=== PATIENT | female | born 1960 | race Caucasian/White ===

== ENCOUNTER 2018-12-13 15:58 | Emergency (ER) | payer MEDICAID ==
[~2018-12-13] VITALS: Ht 160 cm; Wt 82.0 kg
[2018-12-13] MEDS ORDERED: KETOROLAC 60MG/2ML VIAL IM ONE (18:30)
[2018-12-13] MEDS ORDERED: HYDROCODONE/ACETAMINOPHEN 5/325MG TABLET PO ONE (18:45)
[2018-12-13 19:14] VITALS: BP 159/96
== END 2018-12-13 19:19 | disposition home or self-care (01) ==
LOC: ER 15:58
DX: M54.2 Cervicalgia (principal); F17.210 Nicotine dependence, cigarettes, uncomplicated; Z98.1 Arthrodesis status
CPT/HCPCS: 96372; 99283; J1885

== ENCOUNTER 2018-12-14 23:14 | Emergency (ER) | payer MEDICAID ==
[~2018-12-14] VITALS: Ht 157.5 cm; Wt 91.0 kg
[2018-12-14 23:47] VITALS: BP 163/88
== END 2018-12-15 03:54 | disposition left against medical advice (07) ==
LOC: ER 23:14
DX: Z53.21 Procedure and treatment not carried out due to patient leaving prior to being seen by health care provider (principal); I10 Essential (primary) hypertension; Z98.890 Other specified postprocedural states

== ENCOUNTER 2018-12-15 13:44 | Emergency (ER) | payer MEDICAID ==
[~2018-12-15] VITALS: Ht 157.5 cm; Wt 100.0 kg
[2018-12-15] MEDS ORDERED: SODIUM CHLORIDE 0.9% 1,000 ML IV ONE (15:09)
[2018-12-15] MEDS ORDERED: ONDANSETRON HCL 4MG/2ML INJ IV STA (15:09)
[2018-12-15] MEDS ORDERED: LORAZEPAM 0.5MG TABLET PO ONE (15:15)
[2018-12-15] MEDS ORDERED: AMLODIPINE 5MG TABLET PO ONE (15:15)
[2018-12-15 15:28] LABS: BASOPHILS % 0.8 % (0.0-2.0); EOSINOPHILS % 0.7 % (0.0-5.0); HEMATOCRIT. 44.7 % (36.0-48.0); MEAN CORPUSCULAR HEMOGLOBIN 29.3 pg (28.0-32.0); MEAN CORPUSCULAR VOLUME 87.1 fL (81.0-99.0); MEAN PLATELET VOLUME 8.3 fl (7.4-10.4); NEUTROPHILS % 78.5 % (40.0-76.0); PLATELET 224 x1000/uL (130-400); RED BLOOD CELL COUNT 5.13 mill/uL (4.2-5.4)
[2018-12-15 15:34] LABS: CHLORIDE 101 mEq/L (98-107)
[2018-12-15 17:59] LABS: CLARITY URINE CLEAR (CLEAR); COLOR URINE YELLOW (YELLOW); KETONES URINE NEGATIVE (NEGATIVE); LEUKOCYTE ESTERASE URINE NEGATIVE (NEGATIVE); NITRITE URINE NEGATIVE (NEGATIVE); OCCULT BLOOD URINE NEGATIVE (NEGATIVE); PROTEIN URINE NEGATIVE (NEGATIVE); SPECIFIC GRAVITY URINE 1.009 (1.005-1.030); UROBILINOGEN URINE 0.2 E.U./dL (0.2-1.0)
[2018-12-15] MEDS ORDERED: KETOROLAC 30MG/ML VIAL IV ONE (18:15)
[2018-12-15 19:11] VITALS: BP 149/74
== END 2018-12-15 19:14 | disposition home or self-care (01) ==
LOC: ER 13:44
DX: R11.10 Vomiting, unspecified (principal); R19.7 Diarrhea, unspecified; I10 Essential (primary) hypertension
CPT/HCPCS: 36415; 71045; 80053; 81003; 85025; 93005; 96361; 96374; 96375; 99284; J1885; J2405; J7030

== ENCOUNTER 2019-01-08 16:27 | Emergency (ER) | payer MEDICAID ==
[~2019-01-08] VITALS: Ht 157.5 cm; Wt 90.0 kg
[2019-01-08 18:10] LABS: BASOPHILS % 0.9 % (0.0-2.0); EOSINOPHILS % 1.7 % (0.0-5.0); HEMATOCRIT. 46.1 % (36.0-48.0); LYMPHOCYTES % 27.1 % (20.0-50.0); MEAN CORPUSCULAR HEMOGLOBIN 28.8 pg (28.0-32.0); MEAN CORPUSCULAR VOLUME 88.8 fL (81.0-99.0); MEAN PLATELET VOLUME 8.4 fl (7.4-10.4); MONOCYTES % 6.7 % (2.0-8.0); NEUTROPHILS % 63.6 % (40.0-76.0); PLATELET 273 x1000/uL (130-400); RED BLOOD CELL COUNT 5.19 mill/uL (4.2-5.4); RED CELL DISTRIBUTION WIDTH 14.5 % (11.6-14.6)
[2019-01-08 18:13] LABS: CHLORIDE 107 mEq/L (98-107)
[2019-01-08] MEDS ORDERED: MORPHINE SULFATE 4 MG/ML CPJ (NOT FOR IM USE) IV ONE (19:30)
[2019-01-08] MEDS ORDERED: KETOROLAC 60MG/2ML VIAL IM ONE (20:00)
[2019-01-08 20:09] VITALS: BP 145/85
== END 2019-01-08 20:09 | disposition home or self-care (01) ==
LOC: ER 18:22
DX: M54.2 Cervicalgia (principal); I10 Essential (primary) hypertension; Z98.890 Other specified postprocedural states
CPT/HCPCS: 36415; 72040; 80053; 85025; 96372; 96374; 99284; J1885; J2270

== ENCOUNTER 2019-01-19 13:00 | Emergency (ER) | payer MEDICAID ==
[~2019-01-19] VITALS: Ht 160 cm; Wt 90.0 kg
[2019-01-19 13:07] VITALS: BP 119/64
== END 2019-01-19 18:56 | disposition left against medical advice (07) ==
LOC: ER 13:00
DX: Z53.21 Procedure and treatment not carried out due to patient leaving prior to being seen by health care provider (principal); F17.200 Nicotine dependence, unspecified, uncomplicated
CPT/HCPCS: 93005

== ENCOUNTER 2019-02-08 01:54 | Emergency (ER) | payer MEDICAID ==
[~2019-02-08] VITALS: Ht 162.6 cm; Wt 82.0 kg
[2019-02-08] MEDS ORDERED: LORAZEPAM 1MG TABLET PO ONE (06:45)
[2019-02-08] MEDS ORDERED: KETOROLAC 60MG/2ML VIAL IM ONE (06:45)
[2019-02-08 06:48] VITALS: BP 191/86
== END 2019-02-08 08:08 | disposition home or self-care (01) ==
LOC: ER 01:54
DX: G89.29 Other chronic pain (principal); M54.2 Cervicalgia; I10 Essential (primary) hypertension; F12.10 Cannabis abuse, uncomplicated; F17.200 Nicotine dependence, unspecified, uncomplicated; Z98.890 Other specified postprocedural states
CPT/HCPCS: 70450; 93005; 96372; 99284; J1885

== ENCOUNTER 2019-02-14 19:36 | Inpatient (IN) | payer MEDICAID ==
[~2019-02-14] VITALS: Ht 162.6 cm; Wt 111.6 kg
[2019-02-14] MEDS ORDERED: ONDANSETRON HCL 4MG/2ML INJ IV STA (23:41)
[2019-02-14] MEDS ORDERED: MORPHINE SULFATE 4 MG/ML CPJ (NOT FOR IM USE) IV STA (23:41)
[2019-02-14] MEDS ORDERED: CEFTRIAXONE 1 G PREMIX 50 ML IV ONE (23:45)
[2019-02-14] MEDS ORDERED: SODIUM CHLORIDE 0.9% 1000ML BAG (SEPSIS BOLUS) IV ONE (23:45)
[2019-02-14 23:51] LABS: BASOPHILS % 0.2 % (0.0-2.0); EOSINOPHILS % 1.2 % (0.0-5.0); HEMATOCRIT. 40.2 % (36.0-48.0); HEMOGLOBIN. 13.6 g/dL (12.0-16.0); LYMPHOCYTES % 24.6 % (20.0-50.0); MEAN CORPUSCULAR HEMOGLOBIN 29.6 pg (28.0-32.0); MEAN CORPUSCULAR VOLUME 87.6 fL (81.0-99.0); MEAN PLATELET VOLUME 8.4 fl (7.4-10.4); MONOCYTES % 5.3 % (2.0-8.0); NEUTROPHILS % 68.7 % (40.0-76.0); PLATELET 263 x1000/uL (130-400); RED BLOOD CELL COUNT 4.59 mill/uL (4.2-5.4); RED CELL DISTRIBUTION WIDTH 14.3 % (11.6-14.6)
[2019-02-14 23:57] LABS: CHLORIDE 105 mEq/L (98-107)
[2019-02-15 00:56] LABS: CLARITY URINE CLEAR (CLEAR); COLOR URINE YELLOW (YELLOW); KETONES URINE NEGATIVE (NEGATIVE); LEUKOCYTE ESTERASE URINE NEGATIVE (NEGATIVE); NITRITE URINE NEGATIVE (NEGATIVE); OCCULT BLOOD URINE NEGATIVE (NEGATIVE); PH URINE 5.5 (4.5-8.0); PROTEIN URINE NEGATIVE (NEGATIVE); SPECIFIC GRAVITY URINE 1.024 (1.005-1.030); UROBILINOGEN URINE 0.2 E.U./dL (0.2-1.0)
[2019-02-15 01:40] LABS: *AMPHETAMINES SCREEN URINE NEGATIVE (NEGATIVE); *BARBITURATES SCREEN URINE NEGATIVE (NEGATIVE); *BENZODIAZEPINES SCREEN URINE NEGATIVE (NEGATIVE); *COCAINE SCREEN URINE NEGATIVE (NEGATIVE); CANNABINOID URINE SCREEN PRESUMTIVE POSITIVE (NEGATIVE); METHADONE URINE SCREEN NEGATIVE (NEGATIVE); OPIATES URINE SCREEN NEGATIVE (NEGATIVE); PHENCYCLIDINE URINE SCREEN NEGATIVE (NEGATIVE)
[2019-02-15 05:45] VITALS: BP 123/66
[2019-02-15] MEDS ORDERED: HYDR-4009 PO (06:33)
[2019-02-15] MEDS ORDERED: IBUP-2030 PO (06:33)
[2019-02-15] MEDS ORDERED: GABA-290 PO (06:33)
[2019-02-15] MEDS ORDERED: CYCL30CA PO (06:33)
[2019-02-15] MEDS ORDERED: MORPHINE SULFATE 4 MG/ML CPJ (NOT FOR IM USE) IV PRN (07:15)
[2019-02-15] MEDS ORDERED: ONDANSETRON HCL 4MG/2ML INJ IV PRN (07:15)
[2019-02-15] MEDS ORDERED: DEXT 5%/0.45% NACL 1000ML 1,000 ML IV SCH (08:00)
[2019-02-15] MEDS ORDERED: ENOXAPARIN 40MG/0.4ML SYR SUBCUT SCH ×2 (09:00)
[2019-02-15] MEDS ORDERED: PANTOPRAZOLE SODIUM 40 MG/VIAL IV SCH (09:00)
[2019-02-16] MEDS ORDERED: MORP10DI10 PO (05:04)
[2019-02-16] MEDS ORDERED: METH500T6 MT (09:20)
[2019-02-16] MEDS ORDERED: LORA10TA7 MT (09:20)
[2019-02-16] MEDS ORDERED: NALO4SPR BOTHNSTRLS (09:20)
== END 2019-02-15 08:24 | disposition left against medical advice (07) | DRG 282 ==
LOC: ER 19:36 → 7WST 02-15 03:16 → EDBEDREQTM 02-15 03:18 → EDBEDREQ 02-15 03:18 → ENRESERV 02-15 03:44
PROVIDERS: ADMIT Internal Medicine; ATTEND Internal Medicine
DX: K85.90 Acute pancreatitis without necrosis or infection, unspecified (principal); G20 Parkinson's disease; I10 Essential (primary) hypertension; Z79.899 Other long term (current) drug therapy
CPT/HCPCS: 36415; 71045; 74176; 80305; 81003; 83605; 84145; 99285; J0696; J2270; J2405; J7030

== ENCOUNTER 2019-02-15 23:07 | Inpatient (IN) | payer MEDICAID ==
[~2019-02-15] VITALS: Ht 162.6 cm; Wt 87.5 kg
[~2019-02-15 23:07] MED LIST: CYCL30CA PO; GABA-290 PO; HYDR-4009 PO; IBUP-2030 PO
[2019-02-16] MEDS ORDERED: ONDANSETRON HCL 4MG/2ML INJ IV ONE (01:00)
[2019-02-16 04:52] VITALS: BP 117/59
[2019-02-16] MEDS ORDERED: MORP10DI10 PO (05:04)
[2019-02-16] MEDS: MORPHINE SULFATE 4 MG/ML CPJ (NOT FOR IM USE) IV PRN ×2 (06:27→11:43)
[2019-02-16 08:00] VITALS: BP 110/84
[2019-02-16] MEDS: PANTOPRAZOLE SODIUM 40 MG/VIAL IV SCH (08:35)
[2019-02-16] MEDS ORDERED: METH500T6 MT (09:20)
[2019-02-16] MEDS ORDERED: NALO4SPR BOTHNSTRLS (09:20)
[2019-02-16] MEDS ORDERED: LORA10TA7 MT (09:20)
[2019-02-16 09:28] LABS: CHLORIDE 105 mEq/L (98-107)
[2019-02-16 09:30] LABS: BASOPHILS % 0.2 % (0.0-2.0); EOSINOPHILS % 2.2 % (0.0-5.0); HEMATOCRIT. 42.5 % (36.0-48.0); HEMOGLOBIN. 14.1 g/dL (12.0-16.0); MEAN CORPUSCULAR HEMOGLOBIN 29.3 pg (28.0-32.0); MEAN CORPUSCULAR VOLUME 88.3 fL (81.0-99.0); MEAN PLATELET VOLUME 8.4 fl (7.4-10.4); NEUTROPHILS % 61.6 % (40.0-76.0); PLATELET 281 x1000/uL (130-400); RED BLOOD CELL COUNT 4.81 mill/uL (4.2-5.4); RED CELL DISTRIBUTION WIDTH 14.2 % (11.6-14.6)
[2019-02-16 12:00] VITALS: BP 142/78
[2019-02-16] MEDS ORDERED: LACTULOSE 20G/30ML UDC PO PRN (12:45)
[2019-02-16] MEDS ORDERED: DIPHENHYDRAMINE 50MG/ML VIAL IV PRN (12:45)
[2019-02-16] MEDS ORDERED: CLONIDINE 0.1MG TABLET PO PRN (12:45)
[2019-02-16] MEDS ORDERED: LEVOFLOXACIN 500MG PREMIX 100 ML IV SCH (15:00)
[2019-02-16 16:00] VITALS: BP 106/66
[2019-02-16] MEDS: MORPHINE SULFATE 2 MG/ML CPJ (NOT FOR IM USE) IV PRN ×2 (16:04→20:15)
[2019-02-16] MEDS ORDERED: LORAZEPAM 2MG/ML CPJ IV PRN (16:45)
[2019-02-16] MEDS ORDERED: ONDANSETRON HCL 4MG/2ML INJ IV PRN (16:45)
[2019-02-16] MEDS ORDERED: HYDROCODONE/ACETAMINOPHEN 5/325MG TABLET PO PRN (16:45)
[2019-02-16] MEDS ORDERED: ENOXAPARIN 40MG/0.4ML SYR SUBCUT SCH (17:00)
[2019-02-16] MEDS: METRONIDAZOLE 500 MG PREMIX 100 ML IV SCH ×2 (17:03→22:56)
[2019-02-16 18:04] LABS: PROTHROMBIN TIME 10.3 sec (9.6-11.0)
[2019-02-16 18:37] LABS: HEPATITIS B SURFACE ANTIGEN NEGATIVE
[2019-02-16 19:06] LABS: HEPATITIS A AB IGM NEGATIVE (NEGATIVE)
[2019-02-16 20:00] VITALS: BP 129/63
[2019-02-17] VITALS: BP 124/71
[2019-02-17] MEDS: MORPHINE SULFATE 2 MG/ML CPJ (NOT FOR IM USE) IV PRN ×3 (01:38→10:39)
[2019-02-17] MEDS: DEXT 5%/0.45% NACL 1000ML 1,000 ML IV SCH ×2 (02:29→12:19)
[2019-02-17 06:00] VITALS: BP 139/78
[2019-02-17 06:25] LABS: HEMATOCRIT 41.6 % (36.0-48.0); HEMOGLOBIN 13.5 g/dL (12.0-16.0); MEAN CORPUSCULAR HEMOGLOBIN 28.8 pg (28.0-32.0); MEAN CORPUSCULAR VOLUME 88.9 fL (81.0-99.0); PLATELET 250 x1000/uL (130-400); RED BLOOD CELL COUNT 4.67 mill/uL (4.2-5.4); RED CELL DISTRIBUTION WIDTH 14.3 % (11.6-14.6)
[2019-02-17 06:26] LABS: CHLORIDE 107 mEq/L (98-107)
[2019-02-17] MEDS: METRONIDAZOLE 500 MG PREMIX 100 ML IV SCH (07:30)
[2019-02-17] MEDS: PANTOPRAZOLE SODIUM 40 MG/VIAL IV SCH (09:05)
[2019-02-17 13:41] VITALS: BP 138/77
== END 2019-02-17 13:34 | disposition home or self-care (01) | DRG 194 ==
LOC: ER 23:07 → 6EST 02-16 01:01 → ENRESERV 02-16 03:51
PROVIDERS: ADMIT Internal Medicine; ATTEND Internal Medicine
DX: I11.0 Hypertensive heart disease with heart failure (principal); K85.90 Acute pancreatitis without necrosis or infection, unspecified; G20 Parkinson's disease; F11.20 Opioid dependence, uncomplicated; I50.33 Acute on chronic diastolic (congestive) heart failure; B34.9 Viral infection, unspecified; K52.9 Noninfective gastroenteritis and colitis, unspecified; G89.29 Other chronic pain; F17.200 Nicotine dependence, unspecified, uncomplicated; R47.02 Dysphasia; E66.9 Obesity, unspecified; Z91.19 Patient's noncompliance with other medical treatment and regimen; Z68.33 Body mass index [BMI] 33.0-33.9, adult; Z86.79 Personal history of other diseases of the circulatory system; Z79.899 Other long term (current) drug therapy
CPT/HCPCS: 36415; 71045; 76700; 80048; 80076; 84145; 85027; 86705; 86709; 86803; 87340; 93005; 93306; 93970; 99285; C9113; J1650; J1956; J2270; J2405; J3490

== ENCOUNTER 2019-04-11 04:41 | Emergency (ER) | payer MEDICAID ==
[~2019-04-11] VITALS: Ht 160 cm; Wt 87.0 kg
[~2019-04-11 04:41] MED LIST changes: +LORA10TA7 MT; +METH500T6 MT; +MORP10DI10 PO; +NALO4SPR BOTHNSTRLS
[2019-04-11] MEDS ORDERED: MORPHINE SULFATE 4 MG/ML CPJ (NOT FOR IM USE) IV STA (06:08)
[2019-04-11] MEDS ORDERED: ONDANSETRON HCL 4MG/2ML INJ IV STA (06:08)
[2019-04-11] MEDS ORDERED: SODIUM CHLORIDE 0.9% 1,000 ML IV ONE (06:08)
[2019-04-11] MEDS ORDERED: KETOROLAC 30MG/ML VIAL IV ONE (06:45)
[2019-04-11 06:46] LABS: BASOPHILS % 0.3 % (0.0-2.0); EOSINOPHILS % 0.1 % (0.0-5.0); HEMATOCRIT. 48.9 % (36.0-48.0); HEMOGLOBIN. 15.9 g/dL (12.0-16.0); LYMPHOCYTES % 15.3 % (20.0-50.0); MEAN CORPUSCULAR HEMOGLOBIN 27.8 pg (28.0-32.0); MEAN CORPUSCULAR VOLUME 85.3 fL (81.0-99.0); MEAN PLATELET VOLUME 9.2 fl (7.4-10.4); MONOCYTES % 4.9 % (2.0-8.0); NEUTROPHILS % 79.4 % (40.0-76.0); PLATELET 274 x1000/uL (130-400); RED BLOOD CELL COUNT 5.73 mill/uL (4.2-5.4); RED CELL DISTRIBUTION WIDTH 13.8 % (11.6-14.6)
[2019-04-11 06:52] LABS: CHLORIDE 107 mEq/L (98-107)
[2019-04-11 06:53] LABS: INR 1.1
[2019-04-11 06:58] LABS: CLARITY URINE CLOUDY (CLEAR); COLOR URINE DARK YELLOW (YELLOW); KETONES URINE 2+ (NEGATIVE); LEUKOCYTE ESTERASE URINE NEGATIVE (NEGATIVE); NITRITE URINE NEGATIVE (NEGATIVE); OCCULT BLOOD URINE 1+ (NEGATIVE); PROTEIN URINE 4+ (NEGATIVE); SPECIFIC GRAVITY URINE 1.041 (1.005-1.030); UROBILINOGEN URINE 0.2 E.U./dL (0.2-1.0)
[2019-04-11 07:27] VITALS: BP 168/103
== END 2019-04-11 09:09 | disposition left against medical advice (07) ==
LOC: ER 04:41
DX: R10.13 Epigastric pain (principal); M54.2 Cervicalgia; R11.2 Nausea with vomiting, unspecified; R19.7 Diarrhea, unspecified; I10 Essential (primary) hypertension; I25.2 Old myocardial infarction; Z87.891 Personal history of nicotine dependence; Z87.19 Personal history of other diseases of the digestive system; Z79.899 Other long term (current) drug therapy
CPT/HCPCS: 36415; 80053; 81003; 83690; 85025; 85610; 96361; 96374; 96375; 99283; J1885; J2270; J2405; J7030; Z7610

== ENCOUNTER 2019-08-01 15:42 | Emergency (ER) | payer MEDICAID ==
[~2019-08-01] VITALS: Ht 160 cm; Wt 87.0 kg
[2019-08-01 16:18] VITALS: BP 148/103
[2019-08-01] MEDS ORDERED: KETOROLAC 60MG/2ML VIAL IM ONE (18:15)
[2019-08-01 18:34] LABS: CLARITY URINE CLEAR (CLEAR); COLOR URINE YELLOW (YELLOW); KETONES URINE NEGATIVE (NEGATIVE); LEUKOCYTE ESTERASE URINE NEGATIVE (NEGATIVE); NITRITE URINE NEGATIVE (NEGATIVE); OCCULT BLOOD URINE NEGATIVE (NEGATIVE); PROTEIN URINE NEGATIVE (NEGATIVE); SPECIFIC GRAVITY URINE 1.009 (1.005-1.030); UROBILINOGEN URINE 0.2 E.U./dL (0.2-1.0)
== END 2019-08-01 21:07 | disposition home or self-care (01) ==
LOC: ER 15:42
DX: R30.0 Dysuria (principal); R10.31 Right lower quadrant pain; I10 Essential (primary) hypertension; I25.2 Old myocardial infarction; Z87.19 Personal history of other diseases of the digestive system
CPT/HCPCS: 81003; 96372; 99283; J1885

== ENCOUNTER 2019-09-08 20:21 | Emergency (ER) | payer MEDICAID ==
[2019-09-08] MEDS ORDERED: CLONIDINE 0.2MG TABLET PO ONE (21:45)
[2019-09-08 21:49] LABS: BASOPHILS % 0.3 % (0.0-2.0); EOSINOPHILS % 1.8 % (0.0-5.0); HEMATOCRIT. 40.4 % (36.0-48.0); HEMOGLOBIN. 13.3 g/dL (12.0-16.0); LYMPHOCYTES % 29.6 % (20.0-50.0); MEAN CORPUSCULAR HEMOGLOBIN 28.3 pg (28.0-32.0); MEAN CORPUSCULAR VOLUME 85.7 fL (81.0-99.0); MEAN PLATELET VOLUME 8.6 fl (7.4-10.4); MONOCYTES % 7.5 % (2.0-8.0); NEUTROPHILS % 60.8 % (40.0-76.0); PLATELET 215 x1000/uL (130-400); RED BLOOD CELL COUNT 4.71 mill/uL (4.2-5.4); RED CELL DISTRIBUTION WIDTH 14.5 % (11.6-14.6)
[2019-09-08 21:56] LABS: CHLORIDE 105 mEq/L (98-107)
[2019-09-08] MEDS ORDERED: MORPHINE SULFATE 4 MG/ML CPJ (NOT FOR IM USE) IV ONE (22:15)
[2019-09-09 01:03] VITALS: BP 110/60
== END 2019-09-09 01:04 | disposition home or self-care (01) ==
LOC: ER 20:21
DX: L03.116 Cellulitis of left lower limb (principal); L03.115 Cellulitis of right lower limb; R60.9 Edema, unspecified; I16.0 Hypertensive urgency; I10 Essential (primary) hypertension; I25.2 Old myocardial infarction; Z79.899 Other long term (current) drug therapy
CPT/HCPCS: 36415; 71045; 80053; 83880; 84484; 85025; 93005; 96374; 99285; J2270

== ENCOUNTER 2019-11-02 08:28 | Emergency (ER) | payer MEDICAID ==
[~2019-11-02] VITALS: Ht 162.6 cm; Wt 113.6 kg
[2019-11-02] MEDS ORDERED: ASPIRIN 81MG TABLET PO ONE (08:45)
[2019-11-02 09:15] VITALS: BP 134/88
[2019-11-02 09:16] LABS: EOSINOPHILS % 1.9 % (0.0-5.0); HEMATOCRIT. 39.8 % (36.0-48.0); HEMOGLOBIN. 13.1 g/dL (12.0-16.0); LYMPHOCYTES % 24.2 % (20.0-50.0); MEAN CORPUSCULAR HEMOGLOBIN 28.8 pg (28.0-32.0); MEAN CORPUSCULAR VOLUME 87.5 fL (81.0-99.0); MEAN PLATELET VOLUME 8.8 fl (7.4-10.4); MONOCYTES % 4.6 % (2.0-8.0); NEUTROPHILS % 68.3 % (40.0-76.0); PLATELET 173 x1000/uL (130-400); RED BLOOD CELL COUNT 4.55 mill/uL (4.2-5.4); RED CELL DISTRIBUTION WIDTH 14.9 % (11.6-14.6)
[2019-11-02 09:22] LABS: CHLORIDE 107 mEq/L (98-107)
[2019-11-02 09:28] LABS: ETHANOL BLOOD < 10 mg/dL
== END 2019-11-02 09:20 | disposition left against medical advice (07) ==
LOC: ER 08:28
DX: R07.9 Chest pain, unspecified (principal); F17.200 Nicotine dependence, unspecified, uncomplicated; Z98.890 Other specified postprocedural states
CPT/HCPCS: 36415; 80053; 80320; 83690; 83880; 84484; 85025; 93005; 99284; Z7610; G0480

== ENCOUNTER 2019-11-25 16:48 | Inpatient (IN) | payer MEDICAID ==
[~2019-11-25] VITALS: Ht 162.6 cm; Wt 110.8 kg
[2019-11-25 18:22] LABS: BASOPHILS % 0.3 % (0.0-2.0); EOSINOPHILS % 1.9 % (0.0-5.0); HEMATOCRIT. 44.2 % (36.0-48.0); HEMOGLOBIN. 14.6 g/dL (12.0-16.0); LYMPHOCYTES % 30.2 % (20.0-50.0); MEAN CORPUSCULAR HEMOGLOBIN 28.6 pg (28.0-32.0); MEAN CORPUSCULAR VOLUME 86.9 fL (81.0-99.0); MEAN PLATELET VOLUME 8.9 fl (7.4-10.4); NEUTROPHILS % 61.6 % (40.0-76.0); PLATELET 243 x1000/uL (130-400); RED BLOOD CELL COUNT 5.09 mill/uL (4.2-5.4); RED CELL DISTRIBUTION WIDTH 14.8 % (11.6-14.6)
[2019-11-25 18:30] LABS: CHLORIDE 106 mEq/L (98-107)
[2019-11-25] MEDS ORDERED: AZITHROMYCIN 500 MG TABLET PO ONE (19:00)
[2019-11-25] MEDS ORDERED: PREDNISONE 20MG TABLET PO ONE (19:00)
[2019-11-25 22:30] VITALS: BP 130/68
[2019-11-25] MEDS ORDERED: METH-612 MT (23:39)
[2019-11-26] VITALS (7 sets, daily range): BP systolic 114–155; BP diastolic 49–87
[2019-11-26] MEDS ORDERED: ACETAMINOPHEN 325MG TABLET PO PRN (01:00)
[2019-11-26] MEDS: LOSARTAN POTASSIUM 25 MG TABLET PO SCH ×2 (10:23→20:16)
[2019-11-26] MEDS: MORPHINE SULFATE 2 MG/ML CPJ (NOT FOR IM USE) IV PRN (12:49)
[2019-11-26] MEDS ORDERED: IBUPROFEN 400MG TABLET PO PRN (13:30)
[2019-11-26] MEDS ORDERED: CLONIDINE 0.1MG TABLET PO PRN (13:30)
[2019-11-26] MEDS ORDERED: HYDROCODONE/ACETAMINOPHEN 10/325MG TABLET PO PRN (13:30)
[2019-11-26] MEDS ORDERED: LORAZEPAM 2MG/ML CPJ IV PRN (13:30)
[2019-11-26] MEDS: ASPIRIN 81MG TABLET PO SCH (14:23)
[2019-11-26] MEDS: GABAPENTIN 300MG CAPSULE PO SCH ×2 (14:23→20:16)
[2019-11-26 14:28] LABS: BG BASE EXCESS 1.8 mmol/L (-2.0-2.0); BG DEOXYHEMOGLOBIN 4.7 % (0.0-5.0); BG FRACTION INSPIRED OXYGEN 21; BG HCO3 ACT 27.2 mmol/L (22.0-26.0); BG METHEMOGLOBIN 0.3 % (0.0-1.5); BG OXYGEN SATURATION 95.2 % (92.0-98.5); BG PCO2 45.6 mmHg (35.0-45.0); BG PH 7.394 (7.350-7.450); BG PO2 82.4 mmHg (75.0-100.0); BG SAMPLE SITE RIGHT RADIAL; BG TOTAL HEMOGLOBIN 13.9 g/dL (12.0-18.0); BG VENT MODE ROOM AIR
[2019-11-26] MEDS: CEFTRIAXONE 1 G PREMIX 50 ML IV SCH (17:37)
[2019-11-26 17:43] LABS: BASOPHILS % 0.1 % (0.0-2.0); EOSINOPHILS % 0.5 % (0.0-5.0); HEMATOCRIT. 40.6 % (36.0-48.0); HEMOGLOBIN. 13.4 g/dL (12.0-16.0); MEAN CORPUSCULAR HEMOGLOBIN 28.8 pg (28.0-32.0); MEAN CORPUSCULAR VOLUME 87.2 fL (81.0-99.0); MEAN PLATELET VOLUME 8.8 fl (7.4-10.4); MONOCYTES % 7.5 % (2.0-8.0); NEUTROPHILS % 67.9 % (40.0-76.0); PLATELET 218 x1000/uL (130-400); RED BLOOD CELL COUNT 4.65 mill/uL (4.2-5.4)
[2019-11-26 17:48] LABS: CHLORIDE 106 mEq/L (98-107)
[2019-11-26 17:57] LABS: LDL CHOLESTEROL 148 mg/dL (5-100)
[2019-11-26 17:58] LABS: HDL CHOLESTEROL 55 mg/dL (40-59)
[2019-11-26 17:59] LABS: D-DIMER 0.35 mg/L FEU (<0.50); PROTHROMBIN TIME 10.7 sec (9.6-11.0); T4 FREE 1.04 ng/dL (0.76-1.46)
[2019-11-26] MEDS: METHOCARBAMOL 500MG TABLET PO SCH (20:15)
[2019-11-26] MEDS: ENOXAPARIN 40MG/0.4ML SYR SUBCUT SCH (20:16)
[2019-11-26] MEDS ORDERED: FAMOTIDINE 20MG TABLET PO SCH (21:00)
[2019-11-26] MEDS ORDERED: AZITHROMYCIN 500 MG in DEXT 5% WATER 250 ML IV SCH (21:00)
[2019-11-27 04:00] VITALS: BP 107/71
[2019-11-27] MEDS: GABAPENTIN 300MG CAPSULE PO SCH ×2 (05:22→14:28)
[2019-11-27] MEDS ORDERED: IPRATROPIUM/ALBUTEROL 0.5-3(2.5)MG/3ML NEB HHN SCH (06:00)
[2019-11-27 06:39] LABS: HEMOGLOBIN 13.7 g/dL (12.0-16.0); MEAN CORPUSCULAR HEMOGLOBIN 28.5 pg (28.0-32.0); MEAN CORPUSCULAR VOLUME 87.4 fL (81.0-99.0); PLATELET 208 x1000/uL (130-400); RED BLOOD CELL COUNT 4.81 mill/uL (4.2-5.4)
[2019-11-27 07:06] LABS: CHLORIDE 109 mEq/L (98-107)
[2019-11-27 08:00] VITALS: BP 128/80
[2019-11-27] MEDS: ENOXAPARIN 40MG/0.4ML SYR SUBCUT SCH (08:38)
[2019-11-27] MEDS: LOSARTAN POTASSIUM 25 MG TABLET PO SCH (08:38)
[2019-11-27] MEDS: ASPIRIN 81MG TABLET PO SCH (08:38)
[2019-11-27] MEDS: METHOCARBAMOL 500MG TABLET PO SCH (08:38)
[2019-11-27] MEDS: MORPHINE SULFATE 2 MG/ML CPJ (NOT FOR IM USE) IV PRN ×2 (08:39→15:07)
[2019-11-27 09:24] LABS: CLARITY URINE CLEAR (CLEAR); COLOR URINE YELLOW (YELLOW); KETONES URINE NEGATIVE (NEGATIVE); LEUKOCYTE ESTERASE URINE NEGATIVE (NEGATIVE); NITRITE URINE NEGATIVE (NEGATIVE); OCCULT BLOOD URINE NEGATIVE (NEGATIVE); PROTEIN URINE NEGATIVE (NEGATIVE); SPECIFIC GRAVITY URINE 1.034 (1.005-1.030); UROBILINOGEN URINE 0.2 E.U./dL (0.2-1.0)
[2019-11-27 09:48] LABS: *BARBITURATES SCREEN URINE NEGATIVE (NEGATIVE); *BENZODIAZEPINES SCREEN URINE NEGATIVE (NEGATIVE)
[2019-11-27 09:49] LABS: *COCAINE SCREEN URINE NEGATIVE (NEGATIVE); CANNABINOID URINE SCREEN PRESUMTIVE POSITIVE (NEGATIVE); METHADONE URINE SCREEN NEGATIVE (NEGATIVE); OPIATES URINE SCREEN PRESUMTIVE POSITIVE (NEGATIVE); PHENCYCLIDINE URINE SCREEN NEGATIVE (NEGATIVE)
[2019-11-27 09:50] LABS: *AMPHETAMINES SCREEN URINE NEGATIVE (NEGATIVE)
[2019-11-27 12:00] VITALS: BP 115/66
[2019-11-27] MEDS ORDERED: ENOXAPARIN 30MG/0.3ML SYR SUBCUT SCH (13:45)
[2019-11-27] MEDS: CEFTRIAXONE 1 G PREMIX 50 ML IV SCH (15:08)
[2019-11-27 16:13] VITALS: BP 115/64
[2019-11-27] MEDS ORDERED: AZITHROMYCIN 500 MG TABLET PO SCH (21:00)
== END 2019-11-27 16:30 | disposition home or self-care (01) | DRG 194 ==
LOC: ER 16:48 → EDBEDREQ 21:22 → 7WST 21:27 → ENRESERV 21:49 → 5WST 11-26 23:40
PROVIDERS: ADMIT Internal Medicine; ATTEND Internal Medicine
DX: I11.0 Hypertensive heart disease with heart failure (principal); I50.33 Acute on chronic diastolic (congestive) heart failure; G89.4 Chronic pain syndrome; E66.2 Morbid (severe) obesity with alveolar hypoventilation; F11.20 Opioid dependence, uncomplicated; K52.9 Noninfective gastroenteritis and colitis, unspecified; R06.03 Acute respiratory distress; J42 Unspecified chronic bronchitis; Z20.828 Contact with and (suspected) exposure to other viral communicable diseases; Z79.899 Other long term (current) drug therapy; Z71.3 Dietary counseling and surveillance
CPT/HCPCS: 36415; 36600; 71045; 80048; 80053; 80061; 80305; 81003; 82375; 82805; 82962; 83036; 83880; 84439; 84443; 84484; 85025; 85027; 85379; 87635; 93005; 93306; 93970; 99285; J0456; J0696; J1650; J2060; J2270; J7060; J7512

== ENCOUNTER 2019-12-25 15:59 | Inpatient (IN) | payer MEDICAID ==
[~2019-12-25] VITALS: Ht 162.6 cm; Wt 90.7 kg
[~2019-12-25 15:59] MED LIST changes: -CYCL30CA PO; -GABA-290 PO; -HYDR-4009 PO; -IBUP-2030 PO; -MORP10DI10 PO; -NALO4SPR BOTHNSTRLS
[2019-12-25] MEDS ORDERED: ASPIRIN 81MG TABLET PO ONE (16:45)
[2019-12-25] MEDS ORDERED: LORAZEPAM 2MG/ML CPJ IV ONE (17:00)
[2019-12-25 17:39] LABS: BASOPHILS % 0.3 % (0.0-2.0); EOSINOPHILS % 1.5 % (0.0-5.0); HEMATOCRIT. 42.5 % (36.0-48.0); HEMOGLOBIN. 13.9 g/dL (12.0-16.0); LYMPHOCYTES % 25.1 % (20.0-50.0); MEAN CORPUSCULAR HEMOGLOBIN 28.3 pg (28.0-32.0); MEAN CORPUSCULAR VOLUME 86.7 fL (81.0-99.0); MEAN PLATELET VOLUME 8.8 fl (7.4-10.4); MONOCYTES % 6.2 % (2.0-8.0); NEUTROPHILS % 66.9 % (40.0-76.0); PLATELET 242 x1000/uL (130-400); RED CELL DISTRIBUTION WIDTH 14.8 % (11.6-14.6)
[2019-12-25 17:45] LABS: CHLORIDE 102 mEq/L (98-107)
[2019-12-25] MEDS ORDERED: ACETAMINOPHEN 325MG TABLET PO PRN (22:15)
[2019-12-25] MEDS ORDERED: DOCUSATE SODIUM 100MG CAPSULE PO PRN (22:15)
[2019-12-25] MEDS ORDERED: CEFTRIAXONE 1 G PREMIX 50 ML IV SCH (22:15)
[2019-12-25] MEDS ORDERED: CEFTRIAXONE 1,000 MG in DEXTROSE 5% WATER 50 ML IV SCH (23:00)
[2019-12-25] MEDS ORDERED: ENOXAPARIN 40MG/0.4ML SYR SUBCUT SCH (23:00)
[2019-12-25 23:30] VITALS: BP 117/78
[2019-12-26] VITALS: BP 117/78
[2019-12-26] MEDS ORDERED: HYDR-3280 PO (00:15)
[2019-12-26] MEDS ORDERED: GABA300S PO (00:15)
[2019-12-26] MEDS ORDERED: IBUP-2030 PO (00:15)
[2019-12-26] MEDS ORDERED: METH-612 PO (00:15)
[2019-12-26] MEDS ORDERED: AMLO5TAB4 PO (00:15)
[2019-12-26] MEDS ORDERED: PROP20TA7 PO (00:15)
[2019-12-26] MEDS ORDERED: CEFTRIAXONE 1,000 MG in DEXTROSE 5% WATER 50 ML IV SCH (01:00)
[2019-12-26] MEDS: HYDROCODONE/ACETAMINOPHEN 5/325MG TABLET PO PRN ×2 (01:01→10:46)
[2019-12-26] MEDS: METHOCARBAMOL 750MG TABLET PO SCH ×3 (01:13→14:10)
[2019-12-26] MEDS: GABAPENTIN 300MG CAPSULE PO SCH ×2 (01:14→06:31)
[2019-12-26] MEDS: ENOXAPARIN 30MG/0.3ML SYR SUBCUT SCH ×2 (01:14→08:50)
[2019-12-26] MEDS ORDERED: LORAZEPAM 2MG/ML CPJ IV PRN (01:30)
[2019-12-26 02:18] LABS: CLARITY URINE CLEAR (CLEAR); COLOR URINE YELLOW (YELLOW); KETONES URINE NEGATIVE (NEGATIVE); LEUKOCYTE ESTERASE URINE TRACE (NEGATIVE); NITRITE URINE NEGATIVE (NEGATIVE); OCCULT BLOOD URINE NEGATIVE (NEGATIVE); PROTEIN URINE NEGATIVE (NEGATIVE); SPECIFIC GRAVITY URINE 1.027 (1.005-1.030)
[2019-12-26 02:32] LABS: *AMPHETAMINES SCREEN URINE NEGATIVE (NEGATIVE); *BARBITURATES SCREEN URINE NEGATIVE (NEGATIVE); *BENZODIAZEPINES SCREEN URINE NEGATIVE (NEGATIVE); *COCAINE SCREEN URINE NEGATIVE (NEGATIVE); METHADONE URINE SCREEN NEGATIVE (NEGATIVE)
[2019-12-26 02:33] LABS: CANNABINOID URINE SCREEN PRESUMTIVE POSITIVE (NEGATIVE); OPIATES URINE SCREEN NEGATIVE (NEGATIVE); PHENCYCLIDINE URINE SCREEN NEGATIVE (NEGATIVE)
[2019-12-26 04:00] VITALS: BP 114/70
[2019-12-26 07:10] LABS: BASOPHILS % 0.3 % (0.0-2.0); EOSINOPHILS % 1.7 % (0.0-5.0); HEMATOCRIT. 38.4 % (36.0-48.0); HEMOGLOBIN. 12.2 g/dL (12.0-16.0); LYMPHOCYTES % 25.2 % (20.0-50.0); MEAN CORPUSCULAR HEMOGLOBIN 27.8 pg (28.0-32.0); MEAN CORPUSCULAR VOLUME 87.3 fL (81.0-99.0); MEAN PLATELET VOLUME 8.6 fl (7.4-10.4); MONOCYTES % 5.4 % (2.0-8.0); NEUTROPHILS % 67.4 % (40.0-76.0); PLATELET 213 x1000/uL (130-400); RED CELL DISTRIBUTION WIDTH 14.9 % (11.6-14.6)
[2019-12-26 07:38] LABS: CHLORIDE 107 mEq/L (98-107)
[2019-12-26 07:48] LABS: LDL CHOLESTEROL 130 mg/dL (5-100)
[2019-12-26 07:50] LABS: HDL CHOLESTEROL 53 mg/dL (40-59); T4 FREE 1.03 ng/dL (0.76-1.46)
[2019-12-26 08:00] VITALS: BP 97/47
[2019-12-26] MEDS ORDERED: ASPIRIN 81MG EC TABLET PO SCH (09:00)
[2019-12-26] MEDS ORDERED: HYDROCODONE/ACETAMINOPHEN 10/325MG TABLET PO PRN (12:00)
[2019-12-26] MEDS ORDERED: MORPHINE SULFATE 2 MG/ML CPJ (NOT FOR IM USE) IV SCH (12:00)
[2019-12-26 12:10] VITALS: BP 104/50
[2019-12-26] MEDS ORDERED: GABAPENTIN 300MG CAPSULE PO SCH (14:00)
[2019-12-26] MEDS ORDERED: REGADENOSON 0.4 MG/5 ML IV NR (14:30)
[2019-12-26 16:22] VITALS: BP 128/61
== END 2019-12-26 20:02 | disposition left against medical advice (07) | DRG 203 ==
LOC: ER 15:59 → EDBEDREQ 17:50 → EDBEDREQTM 17:50 → ENRESERV 21:58 → 6WST 23:21
PROVIDERS: ADMIT Internal Medicine; ATTEND Internal Medicine
DX: M94.0 Chondrocostal junction syndrome [Tietze] (principal); N39.0 Urinary tract infection, site not specified; I10 Essential (primary) hypertension; I25.10 Atherosclerotic heart disease of native coronary artery without angina pectoris; E11.9 Type 2 diabetes mellitus without complications; G89.29 Other chronic pain; R00.0 Tachycardia, unspecified; E66.9 Obesity, unspecified; E78.5 Hyperlipidemia, unspecified; M54.2 Cervicalgia; Z53.29 Procedure and treatment not carried out because of patient's decision for other reasons; I27.20 Pulmonary hypertension, unspecified; I36.1 Nonrheumatic tricuspid (valve) insufficiency; Z86.73 Personal history of transient ischemic attack (TIA), and cerebral infarction without residual deficits; Z68.34 Body mass index [BMI] 34.0-34.9, adult
CPT/HCPCS: 36415; 71045; 80053; 80061; 80305; 81003; 83880; 84439; 84443; 84484; 85025; 85379; 87077; 87186; 93005; 96365; 99285; J0696; J1650; J2060; J2270; J7060

== ENCOUNTER 2020-02-03 11:48 | Emergency (ER) | payer MEDICAID ==
[~2020-02-03] VITALS: Ht 157.5 cm; Wt 90.0 kg
[~2020-02-03 11:48] MED LIST changes: +AMLO5TAB4 PO; +GABA300S PO; +HYDR-3280 PO; +IBUP-2030 PO; +METH-612 PO; +PROP20TA7 PO
[2020-02-03 12:05] VITALS: BP 151/91
[2020-02-03] MEDS ORDERED: IBUPROFEN 600MG TABLET PO ONE (14:15)
[2020-02-03] MEDS ORDERED: AMOXICILLIN/POTASSIUM CLAVULANATE 875/125MG TAB PO ONE (14:15)
[2020-02-03] MEDS ORDERED: TETANUS, DIPHTHERIA, PERTUSSIS VAC/PF 0.5ML (>7YR OLD) IM ONE (14:15)
== END 2020-02-03 14:37 | disposition home or self-care (01) ==
LOC: ER 11:48
DX: S61.212A Laceration without foreign body of right middle finger without damage to nail, initial encounter (principal); I25.2 Old myocardial infarction; I10 Essential (primary) hypertension; Z86.73 Personal history of transient ischemic attack (TIA), and cerebral infarction without residual deficits; W55.01XA Bitten by cat, initial encounter; Y93.89 Activity, other specified; Y92.89 Other specified places as the place of occurrence of the external cause; Y99.8 Other external cause status
CPT/HCPCS: 90715; 99283

== ENCOUNTER 2020-08-13 16:12 | Emergency (ER) | payer MEDICAID ==
[~2020-08-13] VITALS: Ht 160 cm; Wt 109.0 kg
[~2020-08-13 16:12] MED LIST changes: -HYDR-3280 PO; +HYDR-4350 PO; -METH-612 PO; +METH-653 PO; +METH-773 MT; -METH500T6 MT
[2020-08-13] MEDS ORDERED: MORPHINE SULFATE 4 MG/ML CPJ (NOT FOR IM USE) IV STA (16:47)
[2020-08-13] MEDS ORDERED: ONDANSETRON HCL 4MG/2ML INJ IV STA (16:47)
[2020-08-13] MEDS ORDERED: PIPERACILLIN/TAZ 3.375G PREMIX 50 ML IV ONE (17:00)
[2020-08-13 17:44] LABS: BASOPHILS % 0.7 % (0.0-2.0); EOSINOPHILS % 1.3 % (0.0-5.0); HEMATOCRIT. 39.2 % (36.0-48.0); HEMOGLOBIN. 12.4 g/dL (12.0-16.0); LYMPHOCYTES % 15.9 % (20.0-50.0); MEAN CORPUSCULAR VOLUME 85.6 fL (81.0-99.0); MEAN PLATELET VOLUME 8.6 fl (7.4-10.4); MONOCYTES % 6.2 % (2.0-8.0); NEUTROPHILS % 75.9 % (40.0-76.0); PLATELET 297 x1000/uL (130-400); RED BLOOD CELL COUNT 4.58 mill/uL (4.2-5.4)
[2020-08-13 17:49] LABS: CHLORIDE 104 mEq/L (98-107)
[2020-08-13 17:50] LABS: INR 0.9
[2020-08-13] MEDS ORDERED: LORAZEPAM 2MG/ML CPJ IV ONE ×2 (18:45→19:45)
[2020-08-13 19:30] VITALS: BP 200/98
[2020-08-13] MEDS ORDERED: AMLODIPINE 10MG TABLET PO ONE (19:45)
== END 2020-08-13 22:30 | disposition left against medical advice (07) ==
LOC: ER 16:12 → CANBEDREQ 08-14 04:13
DX: L03.116 Cellulitis of left lower limb (principal); L03.115 Cellulitis of right lower limb; I11.9 Hypertensive heart disease without heart failure; I25.2 Old myocardial infarction; Z86.73 Personal history of transient ischemic attack (TIA), and cerebral infarction without residual deficits; Z98.890 Other specified postprocedural states; Z98.1 Arthrodesis status
CPT/HCPCS: 36415; 71045; 80053; 85025; 85610; 87040; 93005; 96365; 96375; 99285; J2060; J2270; J2405; J2543; Z7610

== ENCOUNTER 2020-08-13 22:01 | Inpatient (IN) | payer MEDICAID ==
[~2020-08-13] VITALS: Ht 160 cm; Wt 113.4 kg
[2020-08-14] MEDS ORDERED: LIDOCAINE HCL 4% CREAM 76GM TUBE TP STA (00:43)
[2020-08-14] MEDS ORDERED: KETOROLAC 30MG/ML VIAL IV ONE (00:45)
[2020-08-14] MEDS: VANCOMYCIN 1 G PREMIX 200 ML IV SCH ×2 (00:52→14:54)
[2020-08-14 02:55] LABS: *AMPHETAMINES SCREEN URINE NEGATIVE (NEGATIVE); *BARBITURATES SCREEN URINE NEGATIVE (NEGATIVE); *BENZODIAZEPINES SCREEN URINE NEGATIVE (NEGATIVE); *COCAINE SCREEN URINE NEGATIVE (NEGATIVE)
[2020-08-14 02:56] LABS: CANNABINOID URINE SCREEN PRESUMTIVE POSITIVE (NEGATIVE); METHADONE URINE SCREEN NEGATIVE (NEGATIVE); OPIATES URINE SCREEN PRESUMTIVE POSITIVE (NEGATIVE); PHENCYCLIDINE URINE SCREEN NEGATIVE (NEGATIVE)
[2020-08-14] MEDS ORDERED: MORPHINE SULFATE 2 MG/ML CPJ (NOT FOR IM USE) IV PRN (07:15)
[2020-08-14] MEDS ORDERED: CEFTRIAXONE 1 G PREMIX 50 ML IV SCH (09:00)
[2020-08-14 09:47] LABS: BASOPHILS % 0.4 % (0.0-2.0); EOSINOPHILS % 0.9 % (0.0-5.0); HEMATOCRIT. 36.4 % (36.0-48.0); HEMOGLOBIN. 11.6 g/dL (12.0-16.0); LYMPHOCYTES % 11.2 % (20.0-50.0); MEAN CORPUSCULAR HEMOGLOBIN 27.1 pg (28.0-32.0); MEAN CORPUSCULAR VOLUME 85.5 fL (81.0-99.0); MEAN PLATELET VOLUME 8.1 fl (7.4-10.4); MONOCYTES % 4.6 % (2.0-8.0); NEUTROPHILS % 82.9 % (40.0-76.0); PLATELET 258 x1000/uL (130-400); RED BLOOD CELL COUNT 4.26 mill/uL (4.2-5.4)
[2020-08-14 09:52] LABS: CHLORIDE 103 mEq/L (98-107)
[2020-08-14 10:00] VITALS: BP 169/111
[2020-08-14] MEDS: AMLODIPINE 5MG TABLET PO SCH (11:02)
[2020-08-14 12:00] VITALS: BP 160/92
[2020-08-14] MEDS: LORAZEPAM 2MG/ML CPJ IV PRN ×2 (12:26→20:46)
[2020-08-14] MEDS: MORPHINE SULFATE 2 MG/ML CPJ (NOT FOR IM USE) IV PRN ×2 (12:28→18:00)
[2020-08-14] MEDS ORDERED: ONDANSETRON HCL 4MG/2ML INJ IV PRN (14:15)
[2020-08-14] MEDS ORDERED: ACETAMINOPHEN 650MG SUPP PR PRN (14:15)
[2020-08-14] MEDS ORDERED: LACTULOSE 20G/30ML UDC PO PRN (14:15)
[2020-08-14] MEDS ORDERED: ACETAMINOPHEN 325MG TABLET PO PRN (14:15)
[2020-08-14] MEDS ORDERED: HYDRALAZINE 20MG/ML VIAL IV PRN (14:15)
[2020-08-14] MEDS ORDERED: BISACODYL 10MG SUPP PR PRN (14:15)
[2020-08-14] MEDS ORDERED: DEXTROSE 50% WATER 50ML SYRINGE IV PRN (14:15)
[2020-08-14] MEDS ORDERED: IPRATROPIUM/ALBUTEROL 0.5-3(2.5)MG/3ML NEB HHN PRN (14:15)
[2020-08-14] MEDS: HYDRALAZINE HCL 50MG TABLET PO SCH ×2 (14:52→20:45)
[2020-08-14] MEDS: GABAPENTIN 300MG CAPSULE PO SCH ×2 (14:53→20:44)
[2020-08-14] MEDS: ENOXAPARIN 40MG/0.4ML SYR SUBCUT SCH (14:55)
[2020-08-14] MEDS: CEFTRIAXONE 1,000 MG in DEXTROSE 5% WATER 50 ML IV SCH (15:47)
[2020-08-14 16:00] VITALS: BP 168/86
[2020-08-14] MEDS: HYDROCODONE/ACETAMINOPHEN 5/325MG TABLET PO PRN ×2 (16:02→20:45)
[2020-08-14] MEDS: BLOOD SUGAR DIAGNOSTIC STRIP TEST SCH ×2 (17:13→21:01)
[2020-08-14] MEDS: INSULIN LISPRO 100 UNITS/ML SUBCUT SCH ×2 (17:14→21:01)
[2020-08-14 20:37] VITALS: BP 166/84
[2020-08-14] MEDS ORDERED: FAMOTIDINE 20MG TABLET PO SCH (21:00)
[2020-08-15 00:35] VITALS: BP 151/79
[2020-08-15] MEDS: VANCOMYCIN 1 G PREMIX 200 ML IV SCH ×3 (01:05→14:24)
[2020-08-15 04:00] VITALS: BP 146/62
[2020-08-15] MEDS: MORPHINE SULFATE 2 MG/ML CPJ (NOT FOR IM USE) IV PRN ×2 (04:47→11:25)
[2020-08-15] MEDS: ENOXAPARIN 40MG/0.4ML SYR SUBCUT SCH (06:19)
[2020-08-15] MEDS: GABAPENTIN 300MG CAPSULE PO SCH ×2 (06:20→14:47)
[2020-08-15] MEDS: HYDRALAZINE HCL 50MG TABLET PO SCH ×2 (06:20→14:47)
[2020-08-15 06:41] LABS: CHLORIDE 104 mEq/L (98-107)
[2020-08-15] MEDS: INSULIN LISPRO 100 UNITS/ML SUBCUT SCH ×2 (06:41→12:50)
[2020-08-15] MEDS: BLOOD SUGAR DIAGNOSTIC STRIP TEST SCH ×2 (06:42→13:00)
[2020-08-15 06:49] LABS: LDL CHOLESTEROL 120 mg/dL (5-100)
[2020-08-15 06:52] LABS: HDL CHOLESTEROL 67 mg/dL (40-59); T4 FREE 1.34 ng/dL (0.76-1.46)
[2020-08-15 07:06] LABS: BASOPHILS % 0.1 % (0.0-2.0); EOSINOPHILS % 1.2 % (0.0-5.0); HEMATOCRIT. 38.4 % (36.0-48.0); HEMOGLOBIN. 12.3 g/dL (12.0-16.0); LYMPHOCYTES % 15.6 % (20.0-50.0); MEAN CORPUSCULAR HEMOGLOBIN 27.1 pg (28.0-32.0); MEAN CORPUSCULAR VOLUME 84.7 fL (81.0-99.0); MEAN PLATELET VOLUME 8.3 fl (7.4-10.4); MONOCYTES % 7.1 % (2.0-8.0); PLATELET 280 x1000/uL (130-400); RED BLOOD CELL COUNT 4.54 mill/uL (4.2-5.4); RED CELL DISTRIBUTION WIDTH 16.2 % (11.6-14.6)
[2020-08-15] MEDS: LORAZEPAM 2MG/ML CPJ IV PRN (07:53)
[2020-08-15 08:21] VITALS: BP 151/97
[2020-08-15] MEDS: AMLODIPINE 5MG TABLET PO SCH (09:21)
[2020-08-15] MEDS: HYDROCODONE/ACETAMINOPHEN 5/325MG TABLET PO PRN ×2 (09:21→14:18)
[2020-08-15 12:00] VITALS: BP 113/71
[2020-08-15] MEDS ORDERED: SULF1TAB48 MT (12:17)
[2020-08-15] MEDS ORDERED: LEVO500T89 MT (12:17)
[2020-08-15 13:56] VITALS: BP 113/71
[2020-08-15] MEDS: CEFTRIAXONE 1,000 MG in DEXTROSE 5% WATER 50 ML IV SCH (14:00)
[2020-08-15 14:18] VITALS: BP 113/71
== END 2020-08-15 15:15 | disposition home health service (06) | DRG 383 ==
LOC: ER 22:01 → 6WST 08-14 01:36 → EDBEDREQ 08-14 01:57 → ENRESERV 08-14 08:09 → CANRESERV 08-14 08:09 → EDBEDREQSVC 08-14 08:35 → ENRESERV 08-14 08:36
PROVIDERS: ADMIT Internal Medicine; ATTEND Internal Medicine
DX: L03.116 Cellulitis of left lower limb (principal); L03.115 Cellulitis of right lower limb; E11.65 Type 2 diabetes mellitus with hyperglycemia; E78.00 Pure hypercholesterolemia, unspecified; E88.09 Other disorders of plasma-protein metabolism, not elsewhere classified; I50.33 Acute on chronic diastolic (congestive) heart failure; E66.01 Morbid (severe) obesity due to excess calories; F12.90 Cannabis use, unspecified, uncomplicated; F11.20 Opioid dependence, uncomplicated; M54.2 Cervicalgia; G89.29 Other chronic pain; I11.0 Hypertensive heart disease with heart failure; I25.2 Old myocardial infarction; Z76.5 Malingerer [conscious simulation]; Z79.899 Other long term (current) drug therapy; Z86.73 Personal history of transient ischemic attack (TIA), and cerebral infarction without residual deficits; Z68.41 Body mass index [BMI] 40.0-44.9, adult
CPT/HCPCS: 36415; 80048; 80053; 80061; 80305; 80320; 82962; 83036; 83605; 83880; 84145; 84439; 84443; 85025; 93970; 97162; 99291; J0360; J0696; J1650; J1815; J1885; J2060; J2270; J3370; J7040; J7060; G0480

== ENCOUNTER 2020-08-23 10:14 | Emergency (ER) | payer MEDICAID ==
[~2020-08-23] VITALS: Ht 152.4 cm; Wt 127.0 kg
[~2020-08-23 10:14] MED LIST changes: +FURO-151 MT
[2020-08-23 10:23] VITALS: BP 188/122
== END 2020-08-23 11:05 | disposition home or self-care (01) ==
LOC: ER 10:14
DX: L03.119 Cellulitis of unspecified part of limb (principal); E11.65 Type 2 diabetes mellitus with hyperglycemia; E78.00 Pure hypercholesterolemia, unspecified; I11.0 Hypertensive heart disease with heart failure; I50.9 Heart failure, unspecified; I25.2 Old myocardial infarction; E66.01 Morbid (severe) obesity due to excess calories; Z68.43 Body mass index [BMI] 50.0-59.9, adult; Z79.4 Long term (current) use of insulin; Z86.73 Personal history of transient ischemic attack (TIA), and cerebral infarction without residual deficits; Z98.890 Other specified postprocedural states
CPT/HCPCS: 82962; 93005; 99283

== ENCOUNTER 2020-09-17 01:11 | Emergency (ER) | payer MEDICAID ==
[~2020-09-17] VITALS: Ht 152.4 cm; Wt 114.0 kg
[~2020-09-17 01:11] MED LIST changes: +SULF1TAB48 MT
[2020-09-17 01:18] VITALS: BP 158/84
== END 2020-09-17 03:12 | disposition left against medical advice (07) ==
LOC: ER 01:11
DX: Z53.21 Procedure and treatment not carried out due to patient leaving prior to being seen by health care provider (principal)

== ENCOUNTER 2021-05-14 18:42 | Inpatient (IN) | payer MEDICAID ==
[~2021-05-14] VITALS: Ht 162.6 cm; Wt 43.1 kg
[~2021-05-14 18:42] MED LIST changes: -AMLO5TAB4 PO; +CLON0.1T MT; +LEVO500T89 MT; -METH-653 PO
[2021-05-15] MEDS ORDERED: KETOROLAC 15MG/ML VIAL IV ONE (00:30)
[2021-05-15 01:05] LABS: BASOPHILS % 0.6 % (0.0-2.0); EOSINOPHILS % 1.2 % (0.0-5.0); HEMATOCRIT. 40.5 % (36.0-48.0); LYMPHOCYTES % 22.6 % (20.0-50.0); MEAN CORPUSCULAR HEMOGLOBIN 26.4 pg (28.0-32.0); MEAN CORPUSCULAR VOLUME 82.3 fL (81.0-99.0); MEAN PLATELET VOLUME 8.2 fl (7.4-10.4); MONOCYTES % 6.2 % (2.0-8.0); NEUTROPHILS % 69.4 % (40.0-76.0); PLATELET 302 x1000/uL (130-400); RED BLOOD CELL COUNT 4.92 mill/uL (4.2-5.4); RED CELL DISTRIBUTION WIDTH 16.6 % (11.6-14.6)
[2021-05-15 01:17] LABS: CHLORIDE 103 mEq/L (98-107)
[2021-05-15] MEDS ORDERED: MORPHINE SULFATE 10 MG/ML CPJ IV NR (01:30)
[2021-05-15] MEDS ORDERED: MORPHINE SULFATE 0.5MG/ML SYR 1ML(NEO) IV ONE (01:30)
[2021-05-15] MEDS ORDERED: CEFTRIAXONE 1 G PREMIX 50 ML IV ONE (02:15)
[2021-05-15] MEDS ORDERED: FUROSEMIDE 40MG/4ML VIAL IVP ONE (02:15)
[2021-05-15] MEDS ORDERED: ONDANSETRON HCL 4MG/2ML INJ IV PRN (11:00)
[2021-05-15] MEDS: FUROSEMIDE 40MG/4ML VIAL IVP SCH (11:00)
[2021-05-15] MEDS ORDERED: ACETAMINOPHEN 325MG TABLET PO PRN (11:00)
[2021-05-15 11:54] VITALS: BP 117/81
[2021-05-15] MEDS ORDERED: DEXTROSE 50% WATER 50ML SYRINGE IV PRN (12:15)
[2021-05-15] MEDS: BLOOD SUGAR DIAGNOSTIC STRIP TEST SCH ×3 (12:20→20:53)
[2021-05-15] MEDS: HYDROCODONE/ACETAMINOPHEN 10/325MG TABLET PO PRN ×2 (12:46→18:11)
[2021-05-15] MEDS: INSULIN LISPRO 100 UNITS/ML SUBCUT SCH ×3 (12:50→21:12)
[2021-05-15 16:00] VITALS: BP 139/60
[2021-05-15 17:40] VITALS: BP 117/81
[2021-05-15] MEDS ORDERED: NALOXONE HCL 0.4MG/ML VIAL IV PRN (18:00)
[2021-05-15 20:00] VITALS: BP 132/78
[2021-05-15] MEDS: ENOXAPARIN 30MG/0.3ML SYR SUBCUT SCH (20:52)
[2021-05-15] MEDS: METHOCARBAMOL 500MG TABLET PO SCH (23:24)
[2021-05-16] VITALS: BP 135/84
[2021-05-16 04:00] VITALS: BP 151/64
[2021-05-16] MEDS ORDERED: GABAPENTIN 300MG CAPSULE PO SCH (06:00)
[2021-05-16 06:35] LABS: BASOPHILS % 0.1 % (0.0-2.0); EOSINOPHILS % 1.7 % (0.0-5.0); HEMATOCRIT. 39.4 % (36.0-48.0); HEMOGLOBIN. 12.7 g/dL (12.0-16.0); LYMPHOCYTES % 22.2 % (20.0-50.0); MEAN CORPUSCULAR HEMOGLOBIN 26.7 pg (28.0-32.0); MEAN CORPUSCULAR VOLUME 82.9 fL (81.0-99.0); MEAN PLATELET VOLUME 7.9 fl (7.4-10.4); MONOCYTES % 6.9 % (2.0-8.0); NEUTROPHILS % 69.1 % (40.0-76.0); PLATELET 277 x1000/uL (130-400); RED BLOOD CELL COUNT 4.76 mill/uL (4.2-5.4); RED CELL DISTRIBUTION WIDTH 16.2 % (11.6-14.6)
[2021-05-16 06:45] LABS: CHLORIDE 102 mEq/L (98-107)
[2021-05-16] MEDS: BLOOD SUGAR DIAGNOSTIC STRIP TEST SCH (06:53)
[2021-05-16] MEDS: HYDROCODONE/ACETAMINOPHEN 10/325MG TABLET PO PRN (06:53)
[2021-05-16 08:00] VITALS: BP 126/71
[2021-05-16] MEDS: METHOCARBAMOL 500MG TABLET PO SCH (08:57)
[2021-05-16] MEDS: ENOXAPARIN 30MG/0.3ML SYR SUBCUT SCH (08:58)
[2021-05-16] MEDS: FUROSEMIDE 40MG/4ML VIAL IVP SCH (08:59)
[2021-05-16] MEDS ORDERED: PROPRANOLOL HCL 10MG TABLET PO SCH (09:00)
[2021-05-16] MEDS: INSULIN LISPRO 100 UNITS/ML SUBCUT SCH (09:36)
[2021-05-16 12:18] VITALS: BP 126/71
== END 2021-05-16 13:00 | disposition home or self-care (01) | DRG 383 ==
LOC: ER 18:42 → MICUSO 05-15 02:05 → 6EST 05-15 09:37
PROVIDERS: ADMIT Internal Medicine; ATTEND Internal Medicine
DX: L03.115 Cellulitis of right lower limb (principal); I50.33 Acute on chronic diastolic (congestive) heart failure; E44.1 Mild protein-calorie malnutrition; I11.0 Hypertensive heart disease with heart failure; E11.622 Type 2 diabetes mellitus with other skin ulcer; L97.819 Non-pressure chronic ulcer of other part of right lower leg with unspecified severity; L03.116 Cellulitis of left lower limb; I87.2 Venous insufficiency (chronic) (peripheral); E66.9 Obesity, unspecified; E78.5 Hyperlipidemia, unspecified; L97.829 Non-pressure chronic ulcer of other part of left lower leg with unspecified severity; F17.200 Nicotine dependence, unspecified, uncomplicated; I87.8 Other specified disorders of veins; J44.9 Chronic obstructive pulmonary disease, unspecified; Z86.73 Personal history of transient ischemic attack (TIA), and cerebral infarction without residual deficits; Z99.3 Dependence on wheelchair; Z79.2 Long term (current) use of antibiotics; Z79.899 Other long term (current) drug therapy; Z68.1 Body mass index [BMI] 19.9 or less, adult; Z71.3 Dietary counseling and surveillance
CPT/HCPCS: 36415; 71045; 80048; 80053; 82962; 83036; 83880; 84484; 85025; 93005; 93923; 97162; 99285; J0696; J1650; J1815; J1885; J1940; J2270

== ENCOUNTER → 2021-10-15 | Outpatient (CLI) | payer MEDICAID ==
[~2021-10-15] MED LIST changes: +LINE600T11 MT
[2021-10-15 17:44] LABS: *AMPHETAMINES SCREEN URINE NEGATIVE (NEGATIVE); *BARBITURATES SCREEN URINE NEGATIVE (NEGATIVE); *BENZODIAZEPINES SCREEN URINE NEGATIVE (NEGATIVE); *COCAINE SCREEN URINE NEGATIVE (NEGATIVE); CANNABINOID URINE SCREEN PRESUMTIVE POSITIVE (NEGATIVE); METHADONE URINE SCREEN NEGATIVE (NEGATIVE); OPIATES URINE SCREEN NEGATIVE (NEGATIVE); PHENCYCLIDINE URINE SCREEN NEGATIVE (NEGATIVE)
== END | disposition home or self-care (01) ==
LOC: LAB 16:13
DX: M96.1 Postlaminectomy syndrome, not elsewhere classified (principal); M54.2 Cervicalgia; G89.4 Chronic pain syndrome
CPT/HCPCS: 80305

== ENCOUNTER 2021-10-31 17:00 | Emergency (ER) | payer MEDICAID ==
[~2021-10-31] VITALS: Ht 162.6 cm; Wt 91.0 kg
[~2021-10-31 17:00] MED LIST changes: -LEVO500T89 MT; +LEVO500T90 MT
[2021-10-31] MEDS ORDERED: MORPHINE SULFATE 10 MG/ML CPJ IM ONE (17:45)
[2021-10-31] MEDS ORDERED: KETOROLAC 60MG/2ML VIAL IM ONE (17:45)
[2021-10-31] MEDS: LIDOCAINE 5% PATCH TOP SCH ×2 (17:45→18:30)
[2021-10-31 18:30] VITALS: BP 188/130
[2021-10-31] MEDS ORDERED: BO1 TP (19:33)
[2021-10-31] MEDS ORDERED: LIDO1ADH23 TP (19:33)
== END 2021-10-31 19:41 | disposition home or self-care (01) ==
LOC: ER 17:00
DX: M54.2 Cervicalgia (principal); I11.0 Hypertensive heart disease with heart failure; I50.9 Heart failure, unspecified; E11.9 Type 2 diabetes mellitus without complications; V00.811A Fall from moving wheelchair (powered), initial encounter; Y93.89 Activity, other specified; Y92.9 Unspecified place or not applicable; Z98.890 Other specified postprocedural states
CPT/HCPCS: 70450; 71045; 72125; 96372; 99284; J1885; J2270

== ENCOUNTER 2022-02-07 01:09 | Emergency (ER) | payer MEDICAID ==
[~2022-02-07] VITALS: Ht 162.6 cm; Wt 100.0 kg
[~2022-02-07 01:09] MED LIST changes: +BO1 TP; +CYCL10TA21 PO; +LIDO1ADH23 TP
[2022-02-07] MEDS ORDERED: ONDANSETRON HCL 4MG/2ML INJ IV STA (02:34)
[2022-02-07] MEDS ORDERED: MORPHINE SULFATE 4 MG/ML CPJ (NOT FOR IM USE) IV STA (02:34)
[2022-02-07 02:46] LABS: CLARITY URINE CLEAR (CLEAR); COLOR URINE YELLOW (YELLOW); KETONES URINE TRACE (NEGATIVE); LEUKOCYTE ESTERASE URINE 1+ (NEGATIVE); NITRITE URINE POSITIVE (NEGATIVE); OCCULT BLOOD URINE NEGATIVE (NEGATIVE); PH URINE 5.5 (4.5-8.0); PROTEIN URINE TRACE (NEGATIVE); SPECIFIC GRAVITY URINE 1.028 (1.005-1.030); UROBILINOGEN URINE 0.2 E.U./dL (0.2-1.0)
[2022-02-07 02:56] LABS: BASOPHILS % 0.8 % (0.0-2.0); EOSINOPHILS % 1.3 % (0.0-5.0); HEMATOCRIT. 44.9 % (36.0-48.0); HEMOGLOBIN. 14.4 g/dL (12.0-16.0); LYMPHOCYTES % 20.2 % (20.0-50.0); MEAN CORPUSCULAR HEMOGLOBIN 27.2 pg (28.0-32.0); MEAN CORPUSCULAR VOLUME 85.2 fL (81.0-99.0); MEAN PLATELET VOLUME 8.4 fl (7.4-10.4); MONOCYTES % 6.2 % (2.0-8.0); NEUTROPHILS % 71.5 % (40.0-76.0); PLATELET 209 x1000/uL (130-400); RED BLOOD CELL COUNT 5.27 mill/uL (4.2-5.4); RED CELL DISTRIBUTION WIDTH 16.4 % (11.6-14.6)
[2022-02-07 02:58] LABS: CHLORIDE 103 mEq/L (98-107)
[2022-02-07] MEDS ORDERED: CEFTRIAXONE 1 G PREMIX 50 ML IV ONE (03:15)
[2022-02-07] MEDS ORDERED: CEPH500C2 MT (04:33)
[2022-02-07 05:00] VITALS: BP 130/59
== END 2022-02-07 05:12 | disposition home or self-care (01) ==
LOC: ER 01:09
DX: N39.0 Urinary tract infection, site not specified (principal); Z79.899 Other long term (current) drug therapy; I11.0 Hypertensive heart disease with heart failure; I50.9 Heart failure, unspecified; E11.9 Type 2 diabetes mellitus without complications; Z98.890 Other specified postprocedural states
CPT/HCPCS: 36415; 71045; 74176; 80053; 81003; 83690; 85025; 87077; 87086; 87186; 96365; 96375; 99285; J0696; J2270; J2405

== ENCOUNTER 2022-05-29 22:20 | Inpatient (IN) | payer MEDICAID ==
[~2022-05-29] VITALS: Ht 162.6 cm; Wt 90.7 kg
[~2022-05-29 22:20] MED LIST changes: -LEVO500T90 MT; -LINE600T11 MT; -SULF1TAB48 MT
[2022-05-29] MEDS ORDERED: METOCLOPRAMIDE HCL 10MG/2ML VIAL IV STA (22:44)
[2022-05-30 00:06] LABS: BASOPHILS % 0.1 % (0.0-2.0); HEMATOCRIT. 39.9 % (36.0-48.0); HEMOGLOBIN. 13.2 g/dL (12.0-16.0); LYMPHOCYTES % 14.6 % (20.0-50.0); MEAN CORPUSCULAR HEMOGLOBIN 28.6 pg (28.0-32.0); MEAN CORPUSCULAR VOLUME 86.3 fL (81.0-99.0); MEAN PLATELET VOLUME 8.1 fl (7.4-10.4); NEUTROPHILS % 78.3 % (40.0-76.0); PLATELET 230 x1000/uL (130-400); RED BLOOD CELL COUNT 4.63 mill/uL (4.2-5.4); RED CELL DISTRIBUTION WIDTH 15.4 % (11.6-14.6)
[2022-05-30 00:11] LABS: CHLORIDE 99 mEq/L (98-107)
[2022-05-30 00:13] LABS: PROTHROMBIN TIME 10.5 sec (9.6-11.0)
[2022-05-30] MEDS ORDERED: METOCLOPRAMIDE HCL 10MG/2ML VIAL IV NR (02:45)
[2022-05-30] MEDS ORDERED: METHYLPREDNISOLONE SOD SUCC 125 MG/2 ML VIAL IV STA (05:12)
[2022-05-30] MEDS ORDERED: KETOROLAC 15MG/ML VIAL IV ONE (05:15)
[2022-05-30] MEDS ORDERED: CEFTRIAXONE 1 G PREMIX 50 ML IV ONE (05:15)
[2022-05-30] MEDS: ALBUTEROL (0.083%) 2.5MG/3ML NEB HHN SCH (06:14)
[2022-05-30] MEDS ORDERED: ONDANSETRON HCL 4MG/2ML INJ IV PRN (09:15)
[2022-05-30] MEDS ORDERED: ACETAMINOPHEN 325MG TABLET PO PRN (09:15)
[2022-05-30] MEDS: SODIUM CHLORIDE 0.45% 1,000 ML IV SCH ×2 (09:22→22:40)
[2022-05-30] MEDS: PIPERACILLIN/TAZ 3.375G PREMIX 50 ML IV SCH ×2 (09:22→20:54)
[2022-05-30] MEDS ORDERED: NALOXONE HCL 0.4MG/ML VIAL IV PRN (17:00)
[2022-05-30] MEDS: HYDROCODONE/ACETAMINOPHEN 5/325MG TABLET PO PRN (17:03)
[2022-05-30] MEDS ORDERED: ENOXAPARIN 40MG/0.4ML SYR SUBCUT SCH (18:00)
[2022-05-30] MEDS: MORPHINE SULFATE 2 MG/ML CPJ (NOT FOR IM USE) IV PRN (20:53)
[2022-05-30] MEDS: FAMOTIDINE 20MG TABLET PO SCH (20:54)
[2022-05-31] MEDS: HYDROCODONE/ACETAMINOPHEN 5/325MG TABLET PO PRN ×2 (00:46→08:56)
[2022-05-31] MEDS: MORPHINE SULFATE 2 MG/ML CPJ (NOT FOR IM USE) IV PRN ×2 (02:57→20:17)
[2022-05-31 05:03] LABS: BASOPHILS % 0.1 % (0.0-2.0); HEMATOCRIT. 37.9 % (36.0-48.0); HEMOGLOBIN. 12.2 g/dL (12.0-16.0); LYMPHOCYTES % 11.5 % (20.0-50.0); MEAN CORPUSCULAR HEMOGLOBIN 27.9 pg (28.0-32.0); MEAN CORPUSCULAR VOLUME 86.9 fL (81.0-99.0); MEAN PLATELET VOLUME 8.2 fl (7.4-10.4); MONOCYTES % 6.3 % (2.0-8.0); NEUTROPHILS % 82.1 % (40.0-76.0); PLATELET 224 x1000/uL (130-400); RED BLOOD CELL COUNT 4.36 mill/uL (4.2-5.4); RED CELL DISTRIBUTION WIDTH 15.4 % (11.6-14.6)
[2022-05-31 05:12] LABS: CHLORIDE 103 mEq/L (98-107)
[2022-05-31] MEDS ORDERED: PIPERACILLIN/TAZOBACTAM 3.375 G in DEXTROSE 5% WATER 50 ML IV SCH (06:00)
[2022-05-31] MEDS ORDERED: PIPERACILLIN/TAZ 3.375G PREMIX 50 ML IV SCH ×2 (06:30→06:45)
[2022-05-31] MEDS: FUROSEMIDE 40MG TABLET PO SCH (09:53)
[2022-05-31 11:00] VITALS: BP 130/77
[2022-05-31] MEDS: SODIUM CHLORIDE 0.45% 1,000 ML IV SCH (11:55)
[2022-05-31 12:00] VITALS: BP 130/77
[2022-05-31 16:00] VITALS: BP 122/40
[2022-05-31] MEDS: PIPERACILLIN/TAZOBACTAM 3.375 G in DEXTROSE 5% WATER 50 ML IV SCH ×2 (16:56→21:58)
[2022-05-31] MEDS: FAMOTIDINE 20MG TABLET PO SCH (20:11)
[2022-06-01] VITALS: BP 104/46
[2022-06-01] MEDS: SODIUM CHLORIDE 0.45% 1,000 ML IV SCH ×2 (01:15→14:33)
[2022-06-01 04:00] VITALS: BP 149/69
[2022-06-01] MEDS: PIPERACILLIN/TAZOBACTAM 3.375 G in DEXTROSE 5% WATER 50 ML IV SCH ×3 (06:00→21:40)
[2022-06-01 08:00] VITALS: BP 140/68
[2022-06-01 08:07] LABS: BASOPHILS % 0.1 % (0.0-2.0); EOSINOPHILS % 0.9 % (0.0-5.0); HEMATOCRIT. 41.4 % (36.0-48.0); HEMOGLOBIN. 13.7 g/dL (12.0-16.0); LYMPHOCYTES % 24.1 % (20.0-50.0); MEAN CORPUSCULAR HEMOGLOBIN 28.5 pg (28.0-32.0); MEAN CORPUSCULAR VOLUME 86.1 fL (81.0-99.0); MEAN PLATELET VOLUME 8.3 fl (7.4-10.4); MONOCYTES % 6.1 % (2.0-8.0); NEUTROPHILS % 68.8 % (40.0-76.0); PLATELET 236 x1000/uL (130-400); RED BLOOD CELL COUNT 4.81 mill/uL (4.2-5.4); RED CELL DISTRIBUTION WIDTH 15.5 % (11.6-14.6)
[2022-06-01] MEDS ORDERED: DIATR MEGLU/DIATRIZOATE SOLN 30ML PO NR (08:15)
[2022-06-01] MEDS: FUROSEMIDE 40MG TABLET PO SCH (08:35)
[2022-06-01] MEDS: HYDROCODONE/ACETAMINOPHEN 5/325MG TABLET PO PRN ×2 (08:51→18:43)
[2022-06-01] MEDS ORDERED: LORAZEPAM 1MG TABLET PO PRN (11:15)
[2022-06-01 12:00] VITALS: BP 155/71
[2022-06-01] MEDS ORDERED: IOHEXOL-300 100 ML BOTTLE ONE (12:51)
[2022-06-01] MEDS: MORPHINE SULFATE 2 MG/ML CPJ (NOT FOR IM USE) IV PRN ×3 (14:16→23:44)
[2022-06-01 16:00] VITALS: BP 153/81
[2022-06-01 20:00] VITALS: BP 104/50
[2022-06-01] MEDS: FAMOTIDINE 20MG TABLET PO SCH (21:42)
[2022-06-02] VITALS: BP 154/65
[2022-06-02 04:00] VITALS: BP 115/78
[2022-06-02] MEDS: SODIUM CHLORIDE 0.45% 1,000 ML IV SCH (04:00)
[2022-06-02 06:00] VITALS: BP 115/78
[2022-06-02] MEDS: PIPERACILLIN/TAZOBACTAM 3.375 G in DEXTROSE 5% WATER 50 ML IV SCH ×2 (06:15→22:05)
[2022-06-02] MEDS: MORPHINE SULFATE 2 MG/ML CPJ (NOT FOR IM USE) IV PRN ×2 (06:25→13:43)
[2022-06-02 07:27] LABS: CHLORIDE 100 mEq/L (98-107)
[2022-06-02 07:47] LABS: BASOPHILS % 0.1 % (0.0-2.0); EOSINOPHILS % 1.2 % (0.0-5.0); HEMATOCRIT. 42.4 % (36.0-48.0); HEMOGLOBIN. 13.7 g/dL (12.0-16.0); LYMPHOCYTES % 16.6 % (20.0-50.0); MEAN CORPUSCULAR HEMOGLOBIN 28.1 pg (28.0-32.0); MEAN CORPUSCULAR VOLUME 87.2 fL (81.0-99.0); MEAN PLATELET VOLUME 8.2 fl (7.4-10.4); NEUTROPHILS % 76.1 % (40.0-76.0); PLATELET 252 x1000/uL (130-400); RED BLOOD CELL COUNT 4.86 mill/uL (4.2-5.4); RED CELL DISTRIBUTION WIDTH 15.7 % (11.6-14.6)
[2022-06-02 08:00] VITALS: BP 131/77
[2022-06-02] MEDS: FUROSEMIDE 40MG TABLET PO SCH (09:00)
[2022-06-02 13:38] VITALS: BP 146/73
[2022-06-02] MEDS ORDERED: NEOSTIGMINE METHYLSULFATE 1MG/ML 10 ML VIAL ONE (15:10)
[2022-06-02] MEDS ORDERED: PROPOFOL 200MG/20ML VIAL IV ONE (15:10)
[2022-06-02] MEDS ORDERED: FENTANYL CITRATE/PF 50MCG/ML 2ML VIAL ONE ×2 (15:10→17:17)
[2022-06-02] MEDS ORDERED: ROCURONIUM BROMIDE 10MG/ML VIAL 5ML IV ONE ×2 (15:10→16:19)
[2022-06-02] MEDS ORDERED: GLYCOPYRROLATE 0.2 MG/ML 2ML VIAL ONE ×2 (15:10→17:53)
[2022-06-02] MEDS ORDERED: MIDAZOLAM HCL 2 MG/2 ML VIAL ONE (15:11)
[2022-06-02] MEDS ORDERED: LIDOCAINE HCL 1% 10 MG/ML 10ML VIAL ONE (15:22)
[2022-06-02] MEDS ORDERED: BUPIVACAINE HCL/PF 0.5% (5MG/ML) 10ML ONE (15:47)
[2022-06-02] MEDS ORDERED: SKIN ADHESIVE 0.7 GM EA TOP ONE (17:55)
[2022-06-02] MEDS ORDERED: IPRATROPIUM/ALBUTEROL 0.5-3(2.5)MG/3ML NEB HHN ONE (18:30)
[2022-06-02] MEDS ORDERED: ONDANSETRON HCL 4MG/2ML INJ IV PRN (18:30)
[2022-06-02] MEDS ORDERED: IPRATROPIUM BROMIDE (0.02%) 0.5MG/2.5ML NEB HHN NR (18:45)
[2022-06-02] MEDS ORDERED: ALBUTEROL (0.083%) 2.5MG/3ML NEB HHN NR (18:45)
[2022-06-02] MEDS: HYDROMORPHONE HCL/PF 2MG/ML CPJ IV PRN ×2 (18:52→20:45)
[2022-06-02 20:00] VITALS: BP 146/84
[2022-06-02] MEDS: FAMOTIDINE 20MG TABLET PO SCH (22:05)
[2022-06-03] VITALS (7 sets, daily range): BP systolic 121–144; BP diastolic 68–79
[2022-06-03] MEDS: MORPHINE SULFATE 2 MG/ML CPJ (NOT FOR IM USE) IV PRN ×4 (00:08→18:53)
[2022-06-03] MEDS: PIPERACILLIN/TAZOBACTAM 3.375 G in DEXTROSE 5% WATER 50 ML IV SCH ×3 (05:22→22:14)
[2022-06-03] MEDS: SODIUM CHLORIDE 0.45% 1,000 ML IV SCH (06:10)
[2022-06-03] MEDS: FUROSEMIDE 40MG TABLET PO SCH (08:51)
[2022-06-03] MEDS: HYDROCODONE/ACETAMINOPHEN 5/325MG TABLET PO PRN ×2 (08:52→16:52)
[2022-06-03 10:36] LABS: BASOPHILS % 0.2 % (0.0-2.0); EOSINOPHILS % 0.4 % (0.0-5.0); HEMATOCRIT. 39.6 % (36.0-48.0); HEMOGLOBIN. 13.1 g/dL (12.0-16.0); LYMPHOCYTES % 11.6 % (20.0-50.0); MEAN CORPUSCULAR HEMOGLOBIN 28.3 pg (28.0-32.0); MEAN CORPUSCULAR VOLUME 85.8 fL (81.0-99.0); MEAN PLATELET VOLUME 8.2 fl (7.4-10.4); MONOCYTES % 4.8 % (2.0-8.0); PLATELET 231 x1000/uL (130-400); RED BLOOD CELL COUNT 4.62 mill/uL (4.2-5.4); RED CELL DISTRIBUTION WIDTH 15.2 % (11.6-14.6)
[2022-06-03 10:40] LABS: CHLORIDE 100 mEq/L (98-107)
[2022-06-03] MEDS ORDERED: DEXTROSE 50% WATER 50ML SYRINGE IV PRN (12:45)
[2022-06-03] MEDS ORDERED: DOCUSATE SODIUM 100MG CAPSULE PO NR (12:45)
[2022-06-03] MEDS ORDERED: LACTULOSE 20G/30ML UDC PO NR (12:45)
[2022-06-03] MEDS: INSULIN LISPRO 100 UNITS/ML SUBCUT SCH ×3 (12:50→21:00)
[2022-06-03] MEDS ORDERED: SULF1TAB48 MT (16:25)
[2022-06-03] MEDS: BLOOD SUGAR DIAGNOSTIC STRIP TEST SCH ×2 (16:49→21:00)
[2022-06-03] MEDS: FAMOTIDINE 20MG TABLET PO SCH (22:13)
[2022-06-04] VITALS: BP 129/60
[2022-06-04 04:00] VITALS: BP 127/70
[2022-06-04] MEDS: MORPHINE SULFATE 2 MG/ML CPJ (NOT FOR IM USE) IV PRN ×2 (04:06→10:40)
[2022-06-04] MEDS: PIPERACILLIN/TAZOBACTAM 3.375 G in DEXTROSE 5% WATER 50 ML IV SCH ×2 (06:57→13:21)
[2022-06-04] MEDS: BLOOD SUGAR DIAGNOSTIC STRIP TEST SCH ×2 (06:57→12:20)
[2022-06-04] MEDS: INSULIN LISPRO 100 UNITS/ML SUBCUT SCH ×2 (06:58→12:50)
[2022-06-04 08:00] VITALS: BP 115/57
[2022-06-04] MEDS: FUROSEMIDE 40MG TABLET PO SCH (09:08)
[2022-06-04 12:00] VITALS: BP 134/62
[2022-06-04] MEDS: HYDROCODONE/ACETAMINOPHEN 5/325MG TABLET PO PRN (13:27)
[2022-06-04 14:19] VITALS: BP 134/62
== END 2022-06-04 15:15 | disposition home health service (06) | DRG 263 ==
LOC: ER 22:20 → MICUSO 05-30 07:52 → EDBEDREQTM 05-30 07:56 → EDBEDREQ 05-30 07:56 → 6EST 05-31 10:44
PROVIDERS: ADMIT Internal Medicine; ATTEND Internal Medicine
PROC: 0FT44ZZ Resection of Gallbladder, Percutaneous Endoscopic Approach (ICD-10-PCS; principal; 2022-06-02)
DX: K80.00 Calculus of gallbladder with acute cholecystitis without obstruction (principal); I50.33 Acute on chronic diastolic (congestive) heart failure; E44.1 Mild protein-calorie malnutrition; E66.9 Obesity, unspecified; E11.9 Type 2 diabetes mellitus without complications; I11.0 Hypertensive heart disease with heart failure; E78.00 Pure hypercholesterolemia, unspecified; Z79.899 Other long term (current) drug therapy; G47.33 Obstructive sleep apnea (adult) (pediatric); K82.8 Other specified diseases of gallbladder; L03.116 Cellulitis of left lower limb; Z20.822 Contact with and (suspected) exposure to COVID-19; F41.9 Anxiety disorder, unspecified; R00.0 Tachycardia, unspecified; I35.8 Other nonrheumatic aortic valve disorders; G89.4 Chronic pain syndrome; Z68.34 Body mass index [BMI] 34.0-34.9, adult; Z79.891 Long term (current) use of opiate analgesic; Z87.891 Personal history of nicotine dependence; Z79.4 Long term (current) use of insulin; Z86.79 Personal history of other diseases of the circulatory system
CPT/HCPCS: 36415; 71045; 74177; 76705; 78227; 80048; 80053; 82962; 83036; 83605; 84145; 85025; 87426; 88304; 93005; 93306; 93971; 94640; 99285; A9537; J1170; J1815; J2250; J2270; J2405; J2543; J2704; J2710; J3010; J3490; J7030; J7060; Q9963; Q9967

== ENCOUNTER 2023-03-05 02:28 | Emergency (ER) | payer MEDICAID ==
[~2023-03-05] VITALS: Ht 157.5 cm; Wt 106.0 kg
[~2023-03-05 02:28] MED LIST changes: -GABA300S PO; +GABA300S4 PO; +SULF1TAB48 MT
[2023-03-05 02:50] VITALS: BP 184/71; PULSE 113; RESP 22; TEMP 98.2; O2SAT 100
== END 2023-03-05 02:59 | disposition left against medical advice (07) ==
LOC: ER 02:56
DX: Z53.21 Procedure and treatment not carried out due to patient leaving prior to being seen by health care provider (principal)
CPT/HCPCS: 99281

== ENCOUNTER 2024-04-13 01:00 | Emergency (ER) | payer MEDICAID ==
[~2024-04-13] VITALS: Ht 162.6 cm; Wt 97.0 kg
[2024-04-13 01:02] VITALS: O2SAT 100
[2024-04-13 01:12] VITALS: TEMP 98.1
[2024-04-13] MEDS: LIDOCAINE 5% PATCH TOP SCH (01:42)
[2024-04-13] MEDS: KETOROLAC 15MG/ML VIAL IM ONE (01:43)
[2024-04-13 04:06] VITALS: BP 164/72; PULSE 119; RESP 16
[2024-04-13] MEDS: HYDROCODONE/ACETAMINOPHEN 5/325MG TABLET PO ONE (04:06)
[2024-04-13] MEDS ORDERED: LIDO700A15 TP (04:17)
[2024-04-13] MEDS ORDERED: NAPR-1176 MT (04:17)
== END 2024-04-13 04:23 | disposition home or self-care (01) ==
LOC: ER 01:00
DX: M54.6 Pain in thoracic spine (principal); I10 Essential (primary) hypertension; Z79.899 Other long term (current) drug therapy
CPT/HCPCS: 72128; 96372; 99285; J1885; Z7610

== ENCOUNTER 2024-07-27 19:23 | Emergency (ER) | payer MEDICAID ==
[~2024-07-27 19:23] MED LIST changes: +LIDO700A15 TP; +NAPR-1176 MT
[2024-07-27 19:24] VITALS: O2SAT 99
[2024-07-27 20:47] VITALS: BP 164/90; PULSE 95; RESP 18
[2024-07-27] MEDS: HYDROCODONE/ACETAMINOPHEN 10/325MG TABLET PO ONE (20:47)
[2024-07-27] MEDS: TETANUS, DIPHTHERIA, PERTUSSIS VAC/PF 0.5ML (>10YR OLD) IM ONE (20:49)
[2024-07-27] MEDS ORDERED: CEPH500T MT (23:19)
[2024-07-27] MEDS ORDERED: SULF1TAB48 MT (23:19)
[2024-07-27] MEDS: CEPHALEXIN 250MG CAPSULE PO ONE (23:28)
[2024-07-27] MEDS: SULFAMETHOXAZOLE/TRIMETHOPRIM 800/160MG TABLET PO ONE (23:30)
[2024-07-27] MEDS: LIDOCAINE HCL/PF 1% 10 MG/ML 5ML VIAL INFIL ONE ×2 (23:31→23:32)
[2024-07-27] MEDS: BACITRACIN ZINC OINT UDPKT TOP ONE (23:32)
== END 2024-07-28 00:15 | disposition left against medical advice (07) ==
LOC: ER 19:23
DX: S81.812A Laceration without foreign body, left lower leg, initial encounter (principal); S80.12XA Contusion of left lower leg, initial encounter; I11.0 Hypertensive heart disease with heart failure; Z99.3 Dependence on wheelchair; I50.9 Heart failure, unspecified; Z98.890 Other specified postprocedural states; Z79.899 Other long term (current) drug therapy; Z79.1 Long term (current) use of non-steroidal anti-inflammatories (NSAID); X58.XXXA Exposure to other specified factors, initial encounter; Y93.89 Activity, other specified; Y92.89 Other specified places as the place of occurrence of the external cause; Y99.8 Other external cause status
CPT/HCPCS: 73700; 90715; 12005; 90471; 99285; J2003; Z7610 ×2

== ENCOUNTER 2024-08-16 11:17 | Inpatient (IN) | payer MEDICAID ==
[~2024-08-16] VITALS: Ht 160 cm; Wt 98.9 kg
[~2024-08-16 11:17] MED LIST changes: +CEPH500T MT
[2024-08-16 11:28] VITALS: O2SAT 97
[2024-08-16] MEDS ORDERED: VANCOMYCIN 1000MG/250ML 250 ML IV STA ×2 (12:19)
[2024-08-16] MEDS: VANCOMYCIN 1000MG/250ML 250 ML IV SCH (12:30)
[2024-08-16] MEDS: PIPERACILLIN/TAZO 3.375G/50ML 50 ML IV STA (14:13)
[2024-08-16] MEDS: MORPHINE SULFATE 4 MG/ML INJ (FOR IV/IM USE) IV ONE (14:14)
[2024-08-16 14:45] LABS: BASOPHILS % 0.4 % (0.0-2.0); EOSINOPHILS % 0.7 % (0.0-5.0); HEMATOCRIT. 43.6 % (36.0-48.0); HEMOGLOBIN. 14.1 g/dL (12.0-16.0); LYMPHOCYTES % 17.2 % (20.0-50.0); MEAN CORPUSCULAR HEMOGLOBIN 28.2 pg (28.0-32.0); MEAN CORPUSCULAR HGB CONC 32.3 g/dL (31.0-37.0); MEAN CORPUSCULAR VOLUME 87.4 fL (81.0-99.0); MEAN PLATELET VOLUME 8.2 fl (7.4-10.4); MONOCYTES % 5.9 % (2.0-8.0); NEUTROPHILS % 75.8 % (40.0-76.0); PLATELET 262 x1000/uL (130-400); RED BLOOD CELL COUNT 4.99 mill/uL (4.2-5.4); RED CELL DISTRIBUTION WIDTH 14.8 % (11.6-14.6); WHITE BLOOD COUNT 10.3 x1000/uL (4.5-11.0)
[2024-08-16 14:56] LABS: CHLORIDE 103 mEq/L (98-107); POTASSIUM 4.1 mEq/L (3.5-5.1); SODIUM 140 mEq/L (136-145)
[2024-08-16 14:57] LABS: CALCIUM 9.5 mg/dL (8.7-10.4); CARBON DIOXIDE 33 mEq/L (21-32)
[2024-08-16 15:02] LABS: CREATININE 0.7 mg/dL (0.6-1.0); GLUCOSE 161 mg/dL (70-105); UREA NITROGEN BLOOD 12 mg/dL (9-23)
[2024-08-16 15:04] LABS: ALANINE AMINOTRANSFERASE 14 IU/L (10-49); ALBUMIN 4.3 g/dL (3.2-4.8); ASPARTATE AMINOTRANSFERASE 16 IU/L (<34); BILIRUBIN TOTAL 0.4 mg/dL (0.1-1.0); PROTEIN TOTAL 7.7 g/dL (6.0-8.3)
[2024-08-16 17:20] VITALS: BP 122/77; PULSE 90; RESP 20; TEMP 36.5
[2024-08-16] MEDS ORDERED: ONDANSETRON HCL 4MG/2ML INJ IV PRN (18:30)
[2024-08-16] MEDS ORDERED: CYCLOBENZAPRINE 10MG TABLET PO PRN (18:30)
[2024-08-16] MEDS ORDERED: DOCUSATE SODIUM 100MG CAPSULE PO PRN (18:30)
[2024-08-16] MEDS: MORPHINE SULFATE 2 MG/ML INJ (NOT FOR IM USE) IV PRN (20:11)
[2024-08-16] MEDS: VANCOMYCIN 750MG PMX (XELLIA) 150 ML IV SCH (21:31)
[2024-08-16] MEDS: PIPERACILLIN/TAZO 3.375G/50ML 50 ML IV SCH (21:31)
[2024-08-16] MEDS: METHOCARBAMOL 500MG TABLET PO SCH (21:31)
[2024-08-17 08:00] VITALS: BP 171/96; PULSE 100; RESP 19; TEMP 36.4; O2SAT 95
[2024-08-17] MEDS: CLONIDINE 0.1MG TABLET PO SCH (09:04)
[2024-08-17] MEDS: LIDOCAINE 5% PATCH TOP SCH (09:06)
[2024-08-17] MEDS: LORATADINE 10MG TABLET PO SCH (09:07)
[2024-08-17] MEDS: ENOXAPARIN 30MG/0.3ML SYR SUBCUT SCH (09:07)
[2024-08-17] MEDS: FUROSEMIDE 40MG TABLET PO SCH (09:08)
[2024-08-17] MEDS: IBUPROFEN 800MG TABLET PO PRN (09:08)
[2024-08-17] MEDS: GABAPENTIN 300MG CAPSULE PO SCH (09:08)
[2024-08-17 12:00] VITALS: BP 136/73; PULSE 92; RESP 18; TEMP 36.4; O2SAT 94
[2024-08-17 16:00] VITALS: BP 139/77; PULSE 96; RESP 19; TEMP 36.5; O2SAT 95
[2024-08-17 20:00] VITALS: BP 105/60; PULSE 101; RESP 19; TEMP 36.6; O2SAT 98
[2024-08-17 23:56] VITALS: BP 98/57; PULSE 99; RESP 20; TEMP 36.3; O2SAT 97
[2024-08-18] MEDS ORDERED: IOHEXOL-300 100 ML BOTTLE ONE (00:46)
[2024-08-18 04:09] VITALS: BP 122/64; PULSE 87; RESP 20; TEMP 36.2; O2SAT 96
[2024-08-18 07:17] LABS: CARBON DIOXIDE 33 mEq/L (21-32); CHLORIDE 101 mEq/L (98-107); POTASSIUM 4.4 mEq/L (3.5-5.1); SODIUM 138 mEq/L (136-145)
[2024-08-18 07:22] LABS: CREATININE 0.8 mg/dL (0.6-1.0)
[2024-08-18 07:23] LABS: GLUCOSE 196 mg/dL (70-105); UREA NITROGEN BLOOD 13 mg/dL (9-23)
[2024-08-18 08:00] VITALS: BP 98/72; PULSE 98; RESP 20; TEMP 36.2; O2SAT 95
[2024-08-18] MEDS ORDERED: DEXTROSE 50% WATER 50ML SYRINGE IV PRN (11:45)
[2024-08-18] MEDS: BLOOD SUGAR DIAGNOSTIC STRIP TEST SCH (11:54)
[2024-08-18 12:00] VITALS: BP 133/78; PULSE 100; RESP 20; TEMP 36.2; O2SAT 98
[2024-08-18] MEDS: INSULIN LISPRO 100 UNITS/ML SUBCUT SCH (13:00)
[2024-08-18] MEDS ORDERED: CLIN-194 MT (14:34)
[2024-08-18 16:00] VITALS: BP 107/70; PULSE 96; RESP 20; TEMP 36; O2SAT 97
[2024-08-18 20:00] VITALS: BP 128/73; PULSE 100; RESP 20; TEMP 36.3; O2SAT 94
[2024-08-18] MEDS: VANCOMYCIN 1GM/200ML PMX (BAXTER) IV SCH (21:37)
[2024-08-19] VITALS: BP 126/70; PULSE 100; RESP 19; TEMP 36.3; O2SAT 95
[2024-08-19 04:00] VITALS: BP 130/68; PULSE 98; RESP 19; TEMP 36.2; O2SAT 95
[2024-08-19 08:00] VITALS: BP 140/71; PULSE 109; RESP 20; TEMP 37; O2SAT 97
[2024-08-19 08:41] VITALS: BP 140/71; RESP 20
== END 2024-08-19 12:32 | disposition left against medical advice (07) | DRG 383 ==
LOC: ER 11:17 → 7WST 13:58 → EDBEDREQSVC 14:00 → EDBEDREQ 14:00 → EDBEDREQTM 14:00
PROVIDERS: ADMIT Internal Medicine; ATTEND Internal Medicine
DX: L03.116 Cellulitis of left lower limb (principal); I11.0 Hypertensive heart disease with heart failure; I50.9 Heart failure, unspecified; E11.9 Type 2 diabetes mellitus without complications; E66.01 Morbid (severe) obesity due to excess calories; Z53.29 Procedure and treatment not carried out because of patient's decision for other reasons; Z99.3 Dependence on wheelchair; Z79.899 Other long term (current) drug therapy; Z91.199 Patient's noncompliance with other medical treatment and regimen due to unspecified reason; Z68.38 Body mass index [BMI] 38.0-38.9, adult
CPT/HCPCS: 36415; 73590; 73630; 73701; 80048; 80053; 80202; 82962; 83036; 85025; 93922; 93971; 97166; 99285; C1893; J1650; J1815; J2270; J2543; J3370; Q9967

== ENCOUNTER 2024-09-06 04:47 | Emergency (ER) | payer MEDICAID ==
[~2024-09-06] VITALS: Ht 170.2 cm; Wt 105.0 kg
[~2024-09-06 04:47] MED LIST changes: -CEPH500T MT; +CLIN-194 MT; -LIDO1ADH23 TP; -SULF1TAB48 MT
[2024-09-06 05:29] VITALS: O2SAT 100
[2024-09-06] MEDS: METOCLOPRAMIDE HCL 10MG/2ML VIAL IV ONE (06:43)
[2024-09-06] MEDS: SODIUM CHLORIDE 0.9% 1,000 ML IV ONE (06:46)
[2024-09-06] MEDS ORDERED: METOPROLOL SUCCINATE 50MG ER TABLET PO STA (06:57)
[2024-09-06] MEDS: ACETAMINOPHEN 1000MG/100ML 100 ML IV ONE (07:26)
[2024-09-06] MEDS: METOPROLOL SUCCINATE 25MG ER TABLET PO NR (08:17)
[2024-09-06 10:41] VITALS: BP 105/61; PULSE 93; RESP 19; TEMP 36.9; O2SAT 97
== END 2024-09-06 10:41 | disposition left against medical advice (07) ==
LOC: ER 05:06 → EDBEDREQSVC 10:18 → EDBEDREQTM 10:18 → EDBEDREQ 10:18 → CANBEDREQ 10:41 → ER 10:41
DX: I11.0 Hypertensive heart disease with heart failure (principal); E11.9 Type 2 diabetes mellitus without complications; E78.00 Pure hypercholesterolemia, unspecified; I50.9 Heart failure, unspecified; Z79.899 Other long term (current) drug therapy
CPT/HCPCS: 70450; 96361; 96365; 96375; 99285; J2765; J7030; Z7610; J0131

== ENCOUNTER 2025-02-13 17:36 | Emergency (ER) | payer MEDICAID ==
[~2025-02-13] VITALS: Ht 160 cm; Wt 115.0 kg
[~2025-02-13 17:36] MED LIST changes: +LIDO-53 TP; -LIDO700A15 TP
[2025-02-13 17:45] VITALS: BP 165/87; TEMP 36.9; O2SAT 95
[2025-02-13 17:46] VITALS: PULSE 98; RESP 18; O2SAT 100
== END 2025-02-13 22:16 | disposition left against medical advice (07) ==
LOC: ER 17:36
DX: M79.669 Pain in unspecified lower leg (principal); Z53.21 Procedure and treatment not carried out due to patient leaving prior to being seen by health care provider
CPT/HCPCS: 99281

== ENCOUNTER 2025-04-30 19:49 | Emergency (ER) | payer MEDICAID ==
[~2025-04-30] VITALS: Ht 162.6 cm; Wt 124.0 kg
[2025-04-30 19:50] VITALS: O2SAT 99
[2025-04-30 19:54] VITALS: BP 131/88; PULSE 105; RESP 20; TEMP 36.9; O2SAT 98
[2025-04-30] MEDS: ACETAMINOPHEN 325MG TABLET PO ONE (21:36)
[2025-04-30] MEDS ORDERED: SULF1TAB48 MT (23:30)
[2025-04-30] MEDS ORDERED: CEPH500T MT (23:30)
== END 2025-04-30 23:48 | disposition home or self-care (01) ==
LOC: ER 19:54
DX: S40.261A Insect bite (nonvenomous) of right shoulder, initial encounter (principal); L03.90 Cellulitis, unspecified; E11.9 Type 2 diabetes mellitus without complications; E78.00 Pure hypercholesterolemia, unspecified; I11.0 Hypertensive heart disease with heart failure; Z79.899 Other long term (current) drug therapy; W57.XXXA Bitten or stung by nonvenomous insect and other nonvenomous arthropods, initial encounter; Y93.89 Activity, other specified; Y92.89 Other specified places as the place of occurrence of the external cause; Y99.8 Other external cause status
CPT/HCPCS: 73030; 99283